=== PATIENT | female | born 1990 | race Caucasian/White ===

== ENCOUNTER 2017-03-13 21:50 | Emergency (ER) | payer OTHER ==
[2017-03-13] MEDS ORDERED: DEXAMETHASONE SOD PHOSPHATE 10 MG/1 ML VIAL IM ONE (22:19)
--- NOTE | 2017-03-13 22:19 | PDOC ---
History of Present Illness - General History Source: Patient Exam Limitations: No Limitations - History of Present Illness Initial Comments: 03/13/17 23:35 The patient is a 26 year old female with no significant past medical history who presents to the ED with s/p allergic reaction prior to arrival. Patient reports she ate maltese food and subsequently developed SOB and tightness in the throat. States she experienced similar symptoms 1 week ago, however at that time, she had [place] island[place] food. The patient denies fever, chills, cough, chest pain, and palpitations. The patient denies abdominal pain, nausea, vomiting, and diarrhea. Allergies: penicillins Social History: No alcohol, tobacco, or drug use reported. Past Surgical History: None reported PCP: Dr. Azalea Pugh <Janneth Paredes - Last Filed: 03/13/17 23:41> - General History Source: Patient <AndrezGianfranco wang - Last Filed: 03/14/17 00:16> - General Chief Complaint: Allergic Reaction Stated Complaint: Allergic Reaction Time Seen by Provider: 03/13/17 22:16 Past History <Janneth Paredes - Last Filed: 03/13/17 23:41> - Immunization History Immunization Up to Date: Yes - Psycho/Social/Smoking Cessation Hx Anxiety: No Suicidal Ideation: No Smoking Status: Yes Smoking History: Never smoked Have you smoked in the past 12 months: No Number of Cigarettes Smoked Daily: 10 Information on smoking cessation initiated: No Hx Alcohol Use: No Drug/Substance Use Hx: No <Gianfranco Lora - Last Filed: 03/14/17 00:16> - Past Medical History Allergies/Adverse Reactions: Allergies Allergy/AdvReac Type Severity Reaction Status Date / Time Penicillins Allergy Verified 03/13/17 22:13 Home Medications: Ambulatory Orders Loratadine/Pseudoephedrine Sul [Claritin-D 24 Hour Tablet] 1 tab PO DAILY #7 tab.sr.24h 10/30/14 Prednisone [Deltasone -] 40 mg PO DAILY #6 tablet 03/14/17 Review of Systems - Review of Systems Able to Perform ROS?: Yes Comments:: 03/13/17 23:36 CONSTITUTIONAL: Absent: fever, no chills, no fatigue EYES: Absent: visual changes ENT: +tightness in throat Absent: ear pain, no sore throat CARDIOVASCULAR: Absent: chest pain, no palpitations RESPIRATORY: +SOB Absent: cough GI: Absent: abdominal pain, no nausea, no vomiting, no constipation, no diarrhea GENITOURINARY: Absent: dysuria, no frequency, no hematuria MUSCULOSKELETAL: Absent: back pain, no arthralgia, no myalgia SKIN: Absent: rash NEURO: Absent: headache <Janneth Paredes - Last Filed: 03/13/17 23:41> *Physical Exam - Vital Signs Last Vital Signs Temp Pulse Resp BP Pulse Ox 98.8 F 72 16 130/61 100 03/13/17 22:14 03/13/17 22:14 03/13/17 22:14 03/13/17 22:14 03/13/17 22:14 - Physical Exam Comments: 03/13/17 23:36 GENERAL: Well-appearing, well-nourished. No apparent distress. HEENT: Normocephalic, atraumatic. PERRL, EOM intact. No tongue swelling. No mouth swelling. Oropharynx is clear. CARDIOVASCULAR: Normal S1, S2. Regular rate and rhythm. PULMONARY: No respiratory distress. Clear to auscultation bilaterally. No stridor. No drooling. No hot potato voice. No conversational dyspnea. No retractions. ABDOMEN: Soft, non-distended, non-tender. EXTREMITIES: Normal ROM in all four extremities. No gross deformities. SKIN: Warm, dry. No rash NEUROLOGICAL: No focal neurological deficits. <Janneth Paredes - Last Filed: 03/13/17 23:41> - Vital Signs Last Vital Signs Temp Pulse Resp BP Pulse Ox 98.8 F 72 16 130/61 100 03/13/17 22:14 03/13/17 22:14 03/13/17 22:14 03/13/17 22:14 03/13/17 22:14 <Gianfranco Lora - Last Filed: 03/14/17 00:16> Medical Decision Making - Medical Decision Making 03/14/17 00:12 Dr. Lora: The scribe's documentation has been prepared under my direction and personally reviewed by me in its entirery. I confirm that the note above accurately reflects all work, treatment, procedures, and medical decision making performed by me. <Gianfranco Lora - Last Filed: 03/14/17 00:16> *DC/Admit/Observation/Transfer - Attestations Scribe Attestion: 03/13/17 23:36 Documentation prepared by Janneth Paredes, acting as medical sales specialist for Gianfranco Lora MD/DO <Janneth Paredes - Last Filed: 03/13/17 23:41> - Discharge Dispostion Admit: No <Gianfranco Lora - Last Filed: 03/14/17 00:16> Diagnosis at time of Disposition: Allergic reaction Qualifiers: Encounter type: initial encounter Qualified Code(s): T78.40XA - Allergy, unspecified, initial encounter - Discharge Dispostion Disposition: HOME Condition at time of disposition: Improved - Prescriptions Prescriptions: Prednisone [Deltasone -] 40 mg PO DAILY #6 tablet - Referrals Referrals: Azalea Pugh MD [Primary Care Provider] - - Patient Instructions Printed Discharge Instructions: DI for General Allergic Reactions Additional Instructions: take medication as directed. get allergy test after you have completed the medication
[2017-03-13 22:24] VITALS: BP 130/61; PULSE 72; TEMP 98.8; BMI 23.8
[2017-03-13] MEDS ORDERED: DEXAMETHASONE SOD PHOSPHATE 10 MG/1 ML VIAL ONE (23:32)
== END 2017-03-14 00:32 | disposition home or self-care (01) ==
LOC: JER 21:50
PROC: 3E023GC Introduction of Other Therapeutic Substance into Muscle, Percutaneous Approach (ICD-10-PCS; principal; 2017-03-13)
DX: T78.40XA Allergy, unspecified, initial encounter (principal); X58.XXXA Exposure to other specified factors, initial encounter; Y93.9 Activity, unspecified
CPT/HCPCS: 96372; 99281-25; 99282-25

== ENCOUNTER 2017-04-16 17:06 | Emergency (ER) | payer OTHER ==
[2017-04-16 17:19] VITALS: BP 130/91; PULSE 90; TEMP 98.4; BMI 20.8
[2017-04-16] MEDS ORDERED: RANITIDINE HCL 150 MG TABLET (FP) PO ONE (17:19)
[2017-04-16] MEDS ORDERED: predniSONE 20 MG TABLET (UD) PO ONE (17:19)
--- NOTE | 2017-04-16 17:20 | PDOC ---
Rapid Medical Evaluation Time Seen by Provider: 04/16/17 17:15 Medical Evaluation: Allergies Allergy/AdvReac Type Severity Reaction Status Date / Time Penicillins Allergy Verified 03/13/17 22:13 I have performed a brief in-person evaluation of this patient. The patient presents with a chief complaint of: right side of face, lips and tongue swelling since yesterday. She does admit this is the second time this has happened, all after eating something from a pizza place. Pertinent physical exam findings: Slight swelling to right face, lateral to right eye. Slight right infraorbital swelling and swelling to right side of upper lip. Pt is talking abnormally although she can handle her own secretions and hold her tongue in her mouth. I have ordered the following: hcg, PO zantac, PO prednisone The patient will proceed to the ED for further evaluation.
--- NOTE | 2017-04-16 18:40 | PDOC ---
History of Present Illness - General Chief Complaint: Allergic Reaction Stated Complaint: ALLERGIC REACTION Time Seen by Provider: 04/16/17 17:15 Past History - Past Medical History Allergies/Adverse Reactions: Allergies Allergy/AdvReac Type Severity Reaction Status Date / Time Penicillins Allergy Verified 04/16/17 17:19 Home Medications: Ambulatory Orders Loratadine/Pseudoephedrine Sul [Claritin-D 24 Hour Tablet] 1 tab PO DAILY #7 tab.sr.24h 10/30/14 Prednisone [Deltasone -] 40 mg PO DAILY #6 tablet 03/14/17 Diphenhydramine HCl [Benadryl -] 25 mg PO Q6H PRN #60 capsule 04/16/17 Epinephrine [Epipen 2-Dameon] 0.3 mg IJ ASDIR #1 kit 04/16/17 Anemia: No Asthma: No Cancer: No Cardiac Disorders: No CVA: No COPD: No DVT: No Dementia: No Diabetes: No Dialysis: No GI Disorders: No Disorders: No HTN: No Hypercholesterolemia: No HIV: No Kidney Stones: No Liver Disease: No Psychiatric Problems: No Seizures: No Thyroid Disease: No Lung CA: No - Immunization History Immunization Up to Date: Yes - Psycho/Social/Smoking Cessation Hx Anxiety: No Suicidal Ideation: No Smoking Status: Yes Smoking History: Current every day smoker Have you smoked in the past 12 months: No Number of Cigarettes Smoked Daily: 8 Information on smoking cessation initiated: No Hx Alcohol Use: No Drug/Substance Use Hx: No *Physical Exam - Vital Signs Last Vital Signs Temp Pulse Resp BP Pulse Ox 98.4 F 90 18 130/91 100 04/16/17 17:15 04/16/17 17:15 04/16/17 17:15 04/16/17 17:15 04/16/17 17:15 ED Treatment Course - ADDITIONAL ORDERS Additional order review: Laboratory Results 04/16/17 17:25 Urine HCG, Qual Negative - Medications Given in the ED: ED Medications Discontinued Medications Generic Name Dose Route Start Last Admin Trade Name Freq PRN Reason Stop Dose Admin Prednisone 60 mg 04/16/17 17:19 04/16/17 17:34 Deltasone - PO 04/16/17 17:20 60 mg ONCE ONE Administration Ranitidine HCl 300 mg 04/16/17 17:19 04/16/17 17:34 Zantac - PO 04/16/17 17:20 300 mg ONCE ONE Administration *DC/Admit/Observation/Transfer Diagnosis at time of Disposition: Allergic reaction - Discharge Dispostion Disposition: HOME Condition at time of disposition: Stable Admit: No - Prescriptions Prescriptions: Diphenhydramine HCl [Benadryl -] 25 mg PO Q6H PRN #60 capsule PRN Reason: itching Epinephrine [Epipen 2-Dameon] 0.3 mg IJ ASDIR #1 kit - Referrals Referrals: Vika Villarreal MD [Staff Physician] - - Patient Instructions Printed Discharge Instructions: DI for General Allergic Reactions Additional Instructions: Please follow up with the property maintenance technician as discussed. Again, if you experience any new swelling to your throat, mouth, face, tongue, lips, or have any difficulty breathing, or rash spreading to your face, please use the epipen as directed and return to the ER.
== END 2017-04-16 18:57 | disposition home or self-care (01) ==
LOC: JERFT 17:06
DX: T78.1XXA Other adverse food reactions, not elsewhere classified, initial encounter (principal); T78.3XXA Angioneurotic edema, initial encounter
CPT/HCPCS: 84703; 99281-25

== ENCOUNTER 2017-09-12 15:54 | Emergency (ER) | payer OTHER ==
[2017-09-12 15:59] VITALS: BP 114/77; PULSE 111; TEMP 98; BMI 28.5
--- NOTE | 2017-09-12 16:00 | PDOC ---
Rapid Medical Evaluation Time Seen by Provider: 09/12/17 15:56 Medical Evaluation: Allergies Allergy/AdvReac Type Severity Reaction Status Date / Time Penicillins Allergy Verified 04/16/17 17:19 09/12/17 15:57 I have performed a brief in-person evaluation of this patient. The patient presents with a chief complaint of: throat feels tight after drinking peach ice tea 10 minutes ago Pertinent physical exam findings: speaking full sentences, o2 sat 98, no stridor , wheezing, no erythema or edema to posterior pharynx I have ordered the following: none The patient will proceed to the ED for further evaluation.
== END 2017-09-12 17:12 | disposition left against medical advice (07) ==
LOC: JERFT 15:54
DX: Z53.21 Procedure and treatment not carried out due to patient leaving prior to being seen by health care provider (principal)
CPT/HCPCS: 99281-25

== ENCOUNTER 2017-12-04 19:58 | Emergency (ER) | payer OTHER ==
--- NOTE | 2017-12-04 20:51 | PDOC ---
Rapid Medical Evaluation Time Seen by Provider: 12/04/17 20:47 Medical Evaluation: Allergies Allergy/AdvReac Type Severity Reaction Status Date / Time Penicillins Allergy Verified 09/12/17 15:59 I have performed a brief in-person evaluation of this patient. The patient presents with a chief complaint of: throat tightness, lightheaded Pertinent physical exam findings: none I have ordered the following: hcg The patient will proceed to the ED for further evaluation.
[2017-12-04 20:54] VITALS: BP 111/69; PULSE 81; TEMP 97.8; BMI 28.9
--- NOTE | 2017-12-04 22:39 | PDOC ---
History of Present Illness - General Chief Complaint: Pain Stated Complaint: FATIGUE Time Seen by Provider: 12/04/17 20:47 History Source: Patient Exam Limitations: No Limitations - History of Present Illness Travel History: No Initial Comments: 12/04/17 22:46 Mother here with concerns of gastric reflux for many weeks. States since then was here thought she would be evaluated also. States sometimes after a large meal she feels that she is choking. Has taken no medication for relief of same. Denies fever, denies any history of gastroenteritis or any bowel problems. Had a elective one month ago. Timing/Duration: reports: changing over time, intermittent Quality: reports: mild, moderate, cramping, fullness, stabbing Abdominal Pain Onset Location: reports: epigastric Pain Radiation: reports: no radiation Activities at Onset: reports: eating Past History - Travel Traveled outside of the country in the last 30 days: No Close contact w/someone who was outside of country & ill: No - Past Medical History Allergies/Adverse Reactions: Allergies Allergy/AdvReac Type Severity Reaction Status Date / Time Penicillins Allergy Verified 12/04/17 20:47 Home Medications: Ambulatory Orders Ranitidine HCl [Zantac] 150 mg PO BID #60 tablet 12/04/17 Anemia: No Asthma: No Cancer: No Cardiac Disorders: No CVA: No COPD: No DVT: No Dementia: No Diabetes: No Dialysis: No GI Disorders: No Disorders: No HTN: No Hypercholesterolemia: No Kidney Stones: No Liver Disease: No Psychiatric Problems: No Seizures: No Thyroid Disease: No Lung CA: No - Immunization History Immunization Up to Date: Yes - Suicide/Smoking/Psychosocial Hx Smoking Status: Yes Smoking History: Never smoked Have you smoked in the past 12 months: No Number of Cigarettes Smoked Daily: 8 Hx Alcohol Use: No Drug/Substance Use Hx: No Review of Systems - Review of Systems Able to Perform ROS?: Yes Is the patient limited French proficient: Yes Constitutional: Yes: Symptoms Reported, See HPI. No: Malaise HEENTM: Yes: See HPI. No: Symptoms Reported, Mouth Pain, Difficulty Swallowing Respiratory: Yes: See HPI. No: Symptoms reported, Cough Cardiac (ROS): No: Symptoms Reported ABD/GI: Yes: Symptoms Reported, See HPI, Other (gastric reflux intermittently, not consistent, and usually self resolves). No: Nausea, Vomiting : No: Symptoms Reported Neurological: Yes: See HPI. No: Symptoms reported, Headache All Other Systems: Reviewed and Negative *Physical Exam - Vital Signs Last Vital Signs Temp Pulse Resp BP Pulse Ox 97.8 F 81 16 111/69 100 12/04/17 20:48 12/04/17 20:48 12/04/17 20:48 12/04/17 20:48 12/04/17 20:48 - Physical Exam General Appearance: Yes: Nourished, Appropriately Dressed. No: Apparent Distress HEENT: positive: VIRAJ, Normal ENT Inspection, TMs Normal, Pharynx Normal. negative: Tonsillar Erythema, Nasal Congestion, Rhinorrhea Neck: positive: Supple. negative: Tender, Lymphadenopathy (R) Respiratory/Chest: positive: Lungs Clear, Normal Breath Sounds Gastrointestinal/Abdominal: positive: Soft. negative: Tender Extremity: positive: Normal Capillary Refill, Normal Inspection Integumentary: positive: Normal Color, Dry, Warm Neurologic: positive: country sales manager II-XII NML intact, Fully Oriented, Alert, Normal Mood/ Affect, Normal Response, Motor Strength 5/5 Progress Note - Progress Note Progress Note: Mild gastric reflux, we'll provide Zantac twice a day and have follow-up with PMD for further evaluation *DC/Admit/Observation/Transfer Diagnosis at time of Disposition: Gastric reflux - Discharge Dispostion Disposition: HOME Condition at time of disposition: Stable Admit: No - Prescriptions Prescriptions: Ranitidine HCl [Zantac] 150 mg PO BID #60 tablet - Referrals - Patient Instructions Printed Discharge Instructions: DI for Gastroesophageal Reflux Disease (GERD) Additional Instructions: Rest, drink lots of fluids: Teas, water, soups Doris darrel, carbonated beverages for the bubbles May try peppermint teas Avoid heavy , spicy or fatty foods until symptoms have resolved Avoid contact with others until fevers and symptoms resolved Lots of handwashing and good hygiene Continue [id number] medications for symptomatic relief Tylenol or Motrin for fever and pain Zantac 150 mg tablet every 12 hours for one week and reassess Followup with private physician in one to 2 days as needed Return to emergency department for worsened symptoms, fevers, dehydration - Post Discharge Activity
== END 2017-12-04 22:49 | disposition home or self-care (01) ==
LOC: JERFT 19:58
DX: K21.9 Gastro-esophageal reflux disease without esophagitis (principal)
CPT/HCPCS: 99281-25

== ENCOUNTER 2018-01-07 23:48 | Emergency (ER) | payer OTHER ==
[2018-01-08 00:16] VITALS: BP 128/81; PULSE 90; TEMP 98.6; BMI 26.5
[2018-01-08] MEDS ORDERED: MAG HYDROX/AL HYDROX/SIMETH 30 ML UNIT-DOSE CUP PO ONE (00:49)
--- NOTE | 2018-01-08 00:49 | PDOC ---
History of Present Illness - General Chief Complaint: Chest Pain Stated Complaint: CHEST PAIN Time Seen by Provider: 01/08/18 00:20 History Source: Patient - History of Present Illness Initial Comments: 01/08/18 01:33 27 year old female c/o epigastric pain with burning sensation to throat worse with laying for several days as per patient today is the worse day . Patient reports that she has been taking Zantac and has not been taking for the last 2 weeks. Patient also reports that she was seen 2 months ago for anxiety and daily patient reports that she had similar symptoms which has now resolved. Past medical History:Anxiety, GERD Past History - Past Medical History Allergies/Adverse Reactions: Allergies Allergy/AdvReac Type Severity Reaction Status Date / Time Penicillins Allergy Verified 12/04/17 20:47 Home Medications: Ambulatory Orders Ranitidine HCl [Zantac] 150 mg PO BID #60 tablet 12/04/17 Famotidine [Pepcid -] 20 mg PO BID #14 tablet 01/08/18 Anemia: No Asthma: No Cancer: No Cardiac Disorders: No CVA: No COPD: No DVT: No Dementia: No Diabetes: No Dialysis: No GI Disorders: No Disorders: No HTN: No Hypercholesterolemia: No Kidney Stones: No Liver Disease: No Psychiatric Problems: No Seizures: No Thyroid Disease: No Lung CA: No - Immunization History Immunization Up to Date: Yes - Suicide/Smoking/Psychosocial Hx Smoking Status: Yes Smoking History: Current every day smoker Have you smoked in the past 12 months: Yes Number of Cigarettes Smoked Daily: 10 Information on smoking cessation initiated: No Hx Alcohol Use: No Drug/Substance Use Hx: No Review of Systems - Review of Systems Able to Perform ROS?: Yes Is the patient limited Polish proficient: No Constitutional: No: Symptoms Reported, See HPI, Chills, Diaphoresis, Fever, Loss of Appetite, Malaise, Night Sweats, Weakness, Weight Stable, Unintentional Wgt. Loss, Unexplained wgt Loss, Other *Physical Exam - Vital Signs Last Vital Signs Temp Pulse Resp BP Pulse Ox 98.6 F 90 20 128/81 99 01/08/18 00:13 01/08/18 00:13 01/08/18 00:13 01/08/18 00:13 01/08/18 00:13 Heart Score/ECG Review - ECG Intrepretation Rhythm: Regular Rhythm Comment:: 01/08/18 01:36 NSR: 84bpm ED Treatment Course - Medications Given in the ED: ED Medications Discontinued Medications Generic Name Dose Route Start Last Admin Trade Name Mely PRN Reason Stop Dose Admin Al Hydroxide/Mg Hydroxide 30 ml 01/08/18 00:49 01/08/18 00:55 Mylanta Oral Suspension - PO 01/08/18 00:50 30 ml ONCE ONE Administration *DC/Admit/Observation/Transfer Diagnosis at time of Disposition: Gastric reflux - Discharge Dispostion Disposition: HOME - Prescriptions Prescriptions: Famotidine [Pepcid -] 20 mg PO BID #14 tablet - Referrals - Patient Instructions Printed Discharge Instructions: DI for Atypical Chest Pain Additional Instructions: follow up with your doctor as soon as possible. - Post Discharge Activity
[2018-01-08] MEDS ORDERED: MAG HYDROX/AL HYDROX/SIMETH 30 ML UNIT-DOSE CUP ONE (01:04)
--- NOTE | 2018-01-08 01:41 | PDOC ---
*Physical Exam - Vital Signs Last Vital Signs Temp Pulse Resp BP Pulse Ox 98.6 F 90 20 128/81 99 01/08/18 00:13 01/08/18 00:13 01/08/18 00:13 01/08/18 00:13 01/08/18 00:13 ED Treatment Course - Medications Given in the ED: ED Medications Discontinued Medications Generic Name Dose Route Start Last Admin Trade Name Porterq PRN Reason Stop Dose Admin Al Hydroxide/Mg Hydroxide 30 ml 01/08/18 00:49 01/08/18 00:55 Mylanta Oral Suspension - PO 01/08/18 00:50 30 ml ONCE ONE Administration Medical Decision Making - Medical Decision Making 01/08/18 01:41 agree with care from [facility] *DC/Admit/Observation/Transfer Diagnosis at time of Disposition: Gastric reflux - Discharge Dispostion Disposition: HOME - Prescriptions Prescriptions: Famotidine [Pepcid -] 20 mg PO BID #14 tablet - Referrals - Patient Instructions Printed Discharge Instructions: DI for Atypical Chest Pain Additional Instructions: follow up with your doctor as soon as possible. - Post Discharge Activity
--- NOTE | 2018-01-08 11:40 | EKG ---
Test Reason : Blood Pressure : / mmHG Vent. Rate : 084 BPM Atrial Rate : 084 BPM P-R Int : 154 ms QRS Dur : 082 ms QT Int : 388 ms P-R-T Axes : 010 002 -05 degrees QTc Int : 458 ms NORMAL SINUS RHYTHM INFERIOR INFARCT , AGE UNDETERMINED CANNOT RULE OUT ANTERIOR INFARCT , AGE UNDETERMINED ABNORMAL ECG NO PREVIOUS ECGS AVAILABLE Confirmed by ADITYA PINTO MD ([id number]) on 01/08/2018 11:40:38 AM Referred By: Confirmed By:ADITYA PINTO MD
== END 2018-01-08 02:31 | disposition home or self-care (01) ==
LOC: JER 23:48
DX: K21.9 Gastro-esophageal reflux disease without esophagitis (principal)
CPT/HCPCS: 93005; 93010; 99282-25

== ENCOUNTER 2018-01-19 23:41 | Emergency (ER) | payer OTHER ==
[2018-01-20] MEDS ORDERED: diphenhydrAMINE HCL 25 MG CAPSULE (FP) PO ONE ×2 (01:09→02:04)
[2018-01-20] MEDS ORDERED: BACITRACIN 0.9 GM PACKET ONE (01:09)
[2018-01-20 01:12] VITALS: BP 131/90; PULSE 76; TEMP 97.2; BMI 28.5
--- NOTE | 2018-01-20 01:20 | PDOC ---
History of Present Illness <Khadra Baker - Last Filed: 01/20/18 01:20> - General History Source: Patient Exam Limitations: No Limitations - History of Present Illness Initial Comments: 01/20/18 01:36 The patient is a 27 year old female with history of anxiety who presents to the ED complaining of a few days of redness to her left forearm. The patient was seen at [facility] ED 2x last week for separate complaints. First, she was seen for complaints of a panic attack. She returned the following day for concerns about her ten fingers being swollen. Today, she presents to the ED complaining of redness to the IV line bandage site. Reports that the affected area feels "itchy". She expresses that she is still concerned about her swollen fingers. No fever or chills. No difficulty breathing or swallowing. <Beryl Jack - Last Filed: 01/20/18 01:46> - General Chief Complaint: Edema Stated Complaint: SWOLLEN HANDS Time Seen by Provider: 01/20/18 00:57 Past History - Past Medical History Anemia: No Asthma: No Cancer: No Cardiac Disorders: No CVA: No COPD: No DVT: No Dementia: No Diabetes: No Dialysis: No GI Disorders: No Disorders: No HTN: No Hypercholesterolemia: No Kidney Stones: No Liver Disease: No Psychiatric Problems: No Seizures: No Thyroid Disease: No Lung CA: No - Immunization History Immunization Up to Date: Yes - Suicide/Smoking/Psychosocial Hx Smoking Status: Yes Smoking History: Never smoked Have you smoked in the past 12 months: No Number of Cigarettes Smoked Daily: 8 Information on smoking cessation initiated: No Hx Alcohol Use: No Drug/Substance Use Hx: No <Khadra Baker - Last Filed: 01/20/18 01:20> <Beryl Jack - Last Filed: 01/20/18 01:46> - Past Medical History Allergies/Adverse Reactions: Allergies Allergy/AdvReac Type Severity Reaction Status Date / Time Penicillins Allergy Verified 01/20/18 00:59 Home Medications: Ambulatory Orders Ranitidine HCl [Zantac] 150 mg PO BID #60 tablet 12/04/17 Famotidine [Pepcid -] 20 mg PO BID #14 tablet 01/08/18 Review of Systems - Review of Systems Able to Perform ROS?: Yes Comments:: 01/20/18 01:43 GENERAL/CONSTITUTIONAL: No fever or chills. No weakness. HEAD, EYES, EARS, NOSE AND THROAT: No change in vision. No ear pain or discharge. No sore throat. CARDIOVASCULAR: No chest pain or shortness of breath. RESPIRATORY: No cough, wheezing, or hemoptysis. GASTROINTESTINAL: No nausea, vomiting, diarrhea or constipation. GENITOURINARY: No dysuria, frequency, or change in urination. MUSCULOSKELETAL: No joint or muscle swelling or pain. No neck or back pain. SKIN: Swelling to b/l fingers. Redness to bandage site. NEUROLOGIC: No headache, vertigo, loss of consciousness, or change in strength/ sensation. ENDOCRINE: No increased thirst. No abnormal weight change. HEMATOLOGIC/LYMPHATIC: No anemia, easy bleeding, or history of blood clots. ALLERGIC/IMMUNOLOGIC: No hives or skin allergy. <Beryl Jack - Last Filed: 01/20/18 01:46> *Physical Exam - Vital Signs Last Vital Signs Temp Pulse Resp BP Pulse Ox 97.2 F L 76 18 131/90 100 01/20/18 00:57 01/20/18 00:57 01/20/18 00:57 01/20/18 00:57 01/20/18 00:57 <Khadra Baker - Last Filed: 01/20/18 01:20> - Vital Signs Last Vital Signs Temp Pulse Resp BP Pulse Ox 97.2 F L 76 18 131/90 100 01/20/18 00:57 01/20/18 00:57 01/20/18 00:57 01/20/18 00:57 01/20/18 00:57 - Physical Exam Comments: 01/20/18 01:44 GENERAL: Awake, alert, and fully oriented, in no acute distress HEAD: No signs of trauma EYES: PERRLA, EOMI, sclera anicteric, conjunctiva clear ENT: Auricles normal inspection, nares patent. Moist mucosa. Poor dentition. NECK: Normal ROM, supple, no JVD, or masses LUNGS: Breath sounds equal, clear to auscultation bilaterally. No wheezes, and no crackles HEART: Regular rate and rhythm, normal S1 and S2, no murmurs, rubs or gallops ABDOMEN: Soft, nontender, normoactive bowel sounds. No guarding, no rebound. No masses EXTREMITIES: No significant swelling noted to the digits of the bilateral upper extremities. Normal range of motion, no edema. No clubbing or cyanosis. No cords, erythema, or tenderness NEUROLOGICAL: Alert and oriented x 3. Moves all extremities. Face is symmetric. SKIN: Left antecubital area has an linear area of irritation surrounding the antecubital fossa that matches the borders of prior tape with a superficial laceration. Warm, Dry, normal turgor. <Beryl Jack - Last Filed: 01/20/18 01:46> *DC/Admit/Observation/Transfer <Khadra Baker - Last Filed: 01/20/18 01:20> - Attestations Scribe Attestion: 01/20/18 01:46 Documentation prepared by Beryl Jack, acting as caregivers non medical for Khadra Baker MD. <Beryl Jack - Last Filed: 01/20/18 01:46> Diagnosis at time of Disposition: Skin irritation - Discharge Dispostion Disposition: HOME Condition at time of disposition: Stable - Referrals Referrals: De Bello MD [Staff Physician] - - Patient Instructions Printed Discharge Instructions: DI for Rash Additional Instructions: please place bacitracin on your irritated skin on your left forearm Our clinic is located at [address] [place] [address] There is a clinic with our internal medicine group with Dr Bello
[2018-01-20] MEDS ORDERED: BACITRACIN 15 GM TUBE TOPICAL OINTMENT TP ONE (02:05)
== END 2018-01-20 01:36 | disposition home or self-care (01) ==
LOC: SUPCPDRO 23:41 → JER 23:41
DX: L30.9 Dermatitis, unspecified (principal)
CPT/HCPCS: 99281-25

== ENCOUNTER 2018-02-05 16:14 | Emergency (ER) | payer OTHER ==
--- NOTE | 2018-02-05 16:40 | PDOC ---
Rapid Medical Evaluation Chief Complaint: Pain, Acute Time Seen by Provider: 02/05/18 16:38 Medical Evaluation: Allergies Allergy/AdvReac Type Severity Reaction Status Date / Time Penicillins Allergy Verified 01/20/18 00:59 02/05/18 16:38 I have performed a brief in-person evaluation of this patient. The patient presents with a chief complaint of: R arm numbness w/ ? swelling to R fingers and ?sob today. Seen for same 01/20 and discharged from ED. H/o anxiety Pertinent physical exam findings:stable w/ unremarkable exam I have ordered the following:upreg/ekg The patient will proceed to the ED for further evaluation. 02/05/18 16:41 Discharge Disposition - Diagnosis Arm numbness - Referrals - Patient Instructions - Post Discharge Activity
[2018-02-05 16:42] VITALS: BP 115/68; PULSE 100; TEMP 97.9; BMI 29.8
--- NOTE | 2018-02-05 18:16 | PDOC ---
History of Present Illness - General Chief Complaint: Pain, Acute Stated Complaint: RIGHT ARM PAIN Time Seen by Provider: 02/05/18 16:38 History Source: Patient Exam Limitations: No Limitations - History of Present Illness Initial Comments: 02/05/18 18:16 Patient came for evaluation with multiple complaints. States has had right hand and arm pain on and off for the past 3 months. States mother suffers from some type of arthritis. And has been evaluated by Dr. Christensen for same. Also has questionable thyroid issues, has had a worsening hair loss, and general malaise for some time. Patient came today because her right arm was bothering her, denies any changes in exercise, heavy lifting, or trauma. Denies numbness or tingling to fingers, but is concerned about the swelling to the finger she noted before. Has taken no medication for relief of same. Denies fever, any recent illness. Had an within this past month 02/05/18 18:21 Timing/Duration: unsure, intermittent Severity: mild, moderate Associated Symptoms: reports: malaise. denies: fever/chills, headaches Past History - Travel Traveled outside of the country in the last 30 days: No Close contact w/someone who was outside of country & ill: No - Past Medical History Allergies/Adverse Reactions: Allergies Allergy/AdvReac Type Severity Reaction Status Date / Time Penicillins Allergy Verified 02/05/18 16:45 Home Medications: Ambulatory Orders NK [No Known Home Medication] 02/05/18 Anemia: No Asthma: No Cancer: No Cardiac Disorders: No CVA: No COPD: No DVT: No Dementia: No Diabetes: No Dialysis: No GI Disorders: No Disorders: No HTN: No Hypercholesterolemia: No Kidney Stones: No Liver Disease: No Psychiatric Problems: No Seizures: No Thyroid Disease: No Lung CA: No - Immunization History Immunization Up to Date: Yes - Suicide/Smoking/Psychosocial Hx Smoking Status: Yes Smoking History: Never smoked Have you smoked in the past 12 months: No Number of Cigarettes Smoked Daily: 20 Information on smoking cessation initiated: No Hx Alcohol Use: No Drug/Substance Use Hx: No Substance Use Type: None Review of Systems - Review of Systems Able to Perform ROS?: Yes Is the patient limited [place] proficient: Yes Constitutional: Yes: Symptoms Reported, See HPI, Malaise. No: Fever, Loss of Appetite HEENTM: Yes: See HPI. No: Symptoms Reported, Nose Congestion Respiratory: Yes: See HPI. No: Symptoms reported, Cough Musculoskeletal: Yes: Symptoms Reported, See HPI, Joint Pain (bilateral hands, worse on the right than the left) Integumentary: Yes: Rash, Other (significant alopecia to the anterior aspect of the scalp) All Other Systems: Reviewed and Negative *Physical Exam - Vital Signs Last Vital Signs Temp Pulse Resp BP Pulse Ox 97.9 F 100 H 16 115/68 98 02/05/18 16:39 02/05/18 16:39 02/05/18 16:39 02/05/18 16:39 02/05/18 16:39 - Physical Exam General Appearance: Yes: Nourished, Appropriately Dressed. No: Apparent Distress HEENT: positive: VIRAJ, Normal ENT Inspection, TMs Normal, Pharynx Normal, Other (multiple decayed or missing teeth to upper mouth, no abscess, or swelling to face. Alopecia extending to midpoint crown of head bilateral temples.) Gastrointestinal/Abdominal: positive: Soft Musculoskeletal: negative: Vertebral Tenderness Extremity: positive: Normal Capillary Refill, Normal Range of Motion (able to supinate and pronate at wrist and elbow without tenderness reproduced, no shoulder pain, no neck pain or muscular pain to upper back). negative: Normal Inspection (patient with joint swelling to bilateral hands and every finger, worse on the right on the thumb the left, however strength is good and equal, capillary refill is brisk. Radial and ulnar pulses are palpable and strong) Integumentary: positive: Dry, Warm, Pale Neurologic: positive: geospatial program management officer II-XII NML intact, Fully Oriented, Alert, Normal Mood/ Affect, Normal Response, Motor Strength 5/5 ED Treatment Course - ADDITIONAL ORDERS Additional order review: Laboratory Results 02/05/18 17:00 Urine HCG, Qual Negative Medical Decision Making - Medical Decision Making 02/05/18 18:20 UCG is negative, patient with multiple complaints that are all chronic in nature including hand swelling and some joint deformity. With appointment tomorrow the Dr. Cam florentino will probably perform multiple laboratory tests and opted out of any blood testing here. Patient has no evidence of any cardiac disease therefore we'll not perform EKG and hold other testing for PMD. Understands may take Tylenol or Motrin for pain relief 02/05/18 18:24 *DC/Admit/Observation/Transfer Diagnosis at time of Disposition: Arm pain, right - Discharge Dispostion Disposition: HOME Condition at time of disposition: Stable Admit: No - Referrals Referrals: Marco Jimenez MD [Primary Care Provider] - - Patient Instructions Printed Discharge Instructions: DI for Arm Pain Additional Instructions: Be sure to keep appointment with Dr. Christensen tomorrow as he may decide to do some testing for further evaluation of chronic arm pain and other seemingly metabolic problems - Post Discharge Activity
[2018-02-05] MEDS ORDERED: IBUPROFEN 400 MG TABLET (FP) PO ONE ×2 (18:25→18:29)
== END 2018-02-05 18:30 | disposition home or self-care (01) ==
LOC: JERFT 16:14
DX: M79.601 Pain in right arm (principal)
CPT/HCPCS: 84703; 99281-25

== ENCOUNTER 2018-03-21 13:29 | Inpatient (IN) | payer OTHER ==
[2018-03-21] MEDS ORDERED: SODIUM CHLORIDE 0.9% 1000 ML INFUS.BAG IV ONE (14:02)
[2018-03-21] MEDS ORDERED: ONDANSETRON 4 MG/2 ML VIAL IVPUSH ONE ×2 (14:02→16:15)
[2018-03-21] MEDS ORDERED: METOCLOPRAMIDE HCL INJECTION 10 MG/2 ML VIAL IVPB ONE (14:17)
--- NOTE | 2018-03-21 14:19 | PDOC ---
History of Present Illness - General History Source: Patient Exam Limitations: No Limitations - History of Present Illness Initial Comments: 03/21/18 14:44 The patient is a 27 year old female, with a significant PMH of GERD, who presents to the emergency department with right upper quadrant abdominal pain and nausea with emesis for approx. 4 hours. The patient states the right upper quadrant abdominal pain began at 10 am this morning followed by 5 episodes of non bloody, non bilious vomiting. The patient states the right upper quadrant abdominal pain is exacerbated with movement and alleviated with rest. The patient states she took gas-x for the abdominal pain with minimal relief. The patient reports her last bowel movement was this morning which was normal ( denies diarrhea, hematochezia, melena). The patient denies chest pain, shortness of breath, headache and dizziness. Denies fever, chills, diarrhea and constipation. Denies dysuria, frequency, urgency and hematuria. Allergies: Penicillins Social history: Drinks 3x a week. Tobacco use, 8 cigarettes per day. No recreational drug use. <Devin Carrillo - Last Filed: 03/21/18 17:26> <Royal Mc - Last Filed: 03/21/18 19:33> - General Chief Complaint: Nausea/Vomiting Stated Complaint: ABD PAIN, VOMITING Time Seen by Provider: 03/21/18 14:02 Past History <Devin Carrillo - Last Filed: 03/21/18 17:26> - Past Medical History Anemia: No Asthma: No Cancer: No Cardiac Disorders: No CVA: No COPD: No DVT: No Dementia: No Diabetes: No Dialysis: No GI Disorders: No Disorders: No HTN: No Hypercholesterolemia: No Kidney Stones: No Liver Disease: No Psychiatric Problems: No Seizures: No Thyroid Disease: No Lung CA: No - Immunization History Immunization Up to Date: Yes - Suicide/Smoking/Psychosocial Hx Smoking Status: Yes Smoking History: Never smoked Have you smoked in the past 12 months: No Number of Cigarettes Smoked Daily: 20 Information on smoking cessation initiated: No Hx Alcohol Use: No Drug/Substance Use Hx: No Substance Use Type: None <Royal Mc - Last Filed: 03/21/18 19:33> - Past Medical History Allergies/Adverse Reactions: Allergies Allergy/AdvReac Type Severity Reaction Status Date / Time Penicillins Allergy Verified 03/21/18 13:54 Home Medications: Ambulatory Orders NK [No Known Home Medication] 02/05/18 Review of Systems - Review of Systems Comments:: 03/21/18 14:44 A complete review of 10 out of 10 review of systems is taken and is negative apart from what is previously mentioned below and in the HPI. <Devin Carrillo - Last Filed: 03/21/18 17:26> *Physical Exam - Vital Signs Last Vital Signs Temp Pulse Resp BP Pulse Ox 97.6 F 76 16 114/94 100 03/21/18 13:51 03/21/18 13:51 03/21/18 13:51 03/21/18 13:51 03/21/18 13:51 - Physical Exam Comments: 03/21/18 14:44 Vitals: Triage vital signs reviewed General Appearance: No acute distress, well nourished, well developed Head: Atraumatic Neck: Supple; No nuchal rigidity Chest Wall: Nontender Cardiac: Regular rate and rhythm, no murmurs, no rubs, no gallops Lungs: Clear to auscultation bilateral, good air movement bilaterally Abdomen: (+) Right upper quadrant tenderness. No guarding or rebound. Soft, nondistended, normal bowel sounds. Rectal: Exam deferred Extremities: Full range of motion to all extremities, no cyanosis, clubbing, or edema Skin: Warm and dry, no rashes or lesions, no rash, no petechiae Psych: Normal mood, normal affect <Devin Carrillo - Last Filed: 03/21/18 17:26> - Vital Signs Last Vital Signs Temp Pulse Resp BP Pulse Ox 97.6 F 76 16 114/94 100 03/21/18 13:51 03/21/18 13:51 03/21/18 13:51 03/21/18 13:51 03/21/18 13:51 <Royal Mc - Last Filed: 03/21/18 19:33> ED Treatment Course - LABORATORY CBC & Chemistry Diagram: 03/21/18 14:25 03/21/18 14:25 - RADIOLOGY Radiograph Interpretation: 03/21/18 17:26 EXAM#: TYPE/EXAM: RESULT: [id number] US/ABDOMEN US -LIMITED INDICATION: Right upper quadrant abdominal pain. TECHNIQUE: A real-time grayscale and color Doppler sonogram of the right upper quadrant of the abdomen was performed by the technologist. Images are submitted for review. COMPARISON: None available. FINDINGS: The liver measures 12.2 cm in length with echogenic hepatic parenchyma compatible with steatosis. Please note that echogenic hepatic parenchyma decreases sonographic sensitivity in detecting hepatic masses, although no discrete hepatic mass lesion identified. The portal vein is patent with hepatopedal flow. There is no evidence of intrahepatic or extrahepatic biliary ductal dilatation. A proximal extrahepatic bile duct measures 3 mm in diameter. The majority the common bile duct is obscured by bowel gas. The gallbladder is not pathologically distended. No evidence of cholelithiasis, gallbladder wall thickening or pericholecystic fluid. The visualized portions of pancreas are grossly unremarkable. The upper abdominal aorta and intrahepatic IVC are unremarkable, where imaged. The right kidney is normal size, measuring 9.8 cm in length with normal cortical echotexture and no hydronephrosis. IMPRESSION: 1. No evidence of cholelithiasis, acute cholecystitis or biliary ductal dilatation. 2. Hepatic steatosis. Reported By: Treva Frazier DO <Devin Carrillo - Last Filed: 03/21/18 17:26> - LABORATORY CBC & Chemistry Diagram: 03/21/18 14:25 03/21/18 14:25 <Royal Mc - Last Filed: 03/21/18 19:33> Medical Decision Making - Medical Decision Making 03/21/18 14:48 The patient is a 27 year old female, with a significant PMH of GERD, who presents to the emergency department with right upper quadrant abdominal pain and 5 episodes of nausea with vomiting (non bloody, non bilious) since 10 am. Plan: Labs, Meds, Abdomen Ultrasound. <Devin Carrillo - Last Filed: 03/21/18 17:26> - Medical Decision Making Laboratory analysis notable for markedly elevated lipase. History examination consistent pancreatitis. Given no evidence of gallstones on ultrasound this most likely represents alcoholic pancreatitis Given persistent vomiting and pain we'll admit to medicine for further management. <Royal Mc - Last Filed: 03/21/18 19:33> *DC/Admit/Observation/Transfer - Attestations Scribe Attestion: 03/21/18 14:48 Documentation prepared by Devin Carrillo, acting as emergency medical service manager for Royal Mc MD. <Devin Carrillo - Last Filed: 03/21/18 17:26> - Discharge Dispostion Decision to Admit order: Yes <Royal Mc - Last Filed: 03/21/18 19:33> Diagnosis at time of Disposition: Pancreatitis Qualifiers: Chronicity: acute Pancreatitis type: other Acute pancreatitis complication: unspecified Qualified Code(s): K85.80 - Other acute pancreatitis without necrosis or infection
[2018-03-21] MEDS ORDERED: ONDANSETRON 4 MG/2 ML VIAL ONE (14:35)
[2018-03-21] MEDS ORDERED: METOCLOPRAMIDE HCL INJECTION 10 MG/2 ML VIAL ONE (14:35)
[2018-03-21 14:55] LABS: BASO % 0.3 % (0-2.0); EOS % 0.1 % (0-4.5); HEMOGLOBIN 15.1 GM/dL (10.7-15.3); LYMPH % 4.8 % (8-40); MCH 31.4 pg (25.7-33.7); MCHC 34.4 g/dl (32.0-36.0); MEAN CELL VOLUME 91.3 fl (80-96); MEAN PLT VOLUME 8.4 fl (7.5-11.1); MONO % 3.9 % (3.8-10.2); NEUT % 90.9 % (42.8-82.8); PLATELET COUNT 201 K/MM3 (134-434); RBC 4.82 M/mm3 (3.60-5.2); RDW 16.9 % (11.6-15.6); WHITE BLOOD COUNT 13.5 K/mm3 (4.0-10.0)
[2018-03-21 14:58] LABS: URINE APPEARANCE SLCLOUDY; URINE BILIRUBIN NEGATIVE (<2.0 mg/dL); URINE COLOR YELLOW; URINE GLUCOSE (UA) NEGATIVE (NEGATIVE); URINE KETONE 2+ (NEGATIVE); URINE LEUK ESTERASE NEGATIVE (NEGATIVE); URINE NITRITE NEGATIVE (NEGATIVE)
[2018-03-21 15:02] LABS: HCG,QUALITATIVE URINE NEGATIVE
[2018-03-21 15:05] LABS: URINE PROTEIN 1+ (NEGATIVE)
[2018-03-21 15:17] LABS: EPI CELLS MODERATE /HPF (FEW); URINE MUCUS MANY
[2018-03-21 15:35] LABS: ALK PHOS 88 U/L (45-117); ANION GAP 8 (8-16); BILIRUBIN,TOTAL 0.9 mg/dL (0.2-1.0); BLOOD UREA NITROGEN 12 mg/dL (7-18); CALCIUM 8.9 mg/dL (8.5-10.1); CHLORIDE 102 mmol/L (98-107); CO2 27 mmol/L (21-32); CREATININE 0.7 mg/dL (0.55-1.02); GLUCOSE,RANDOM 94 mg/dL (74-106); POTASSIUM 3.9 mmol/L (3.5-5.1); SGOT/AST 17 U/L (15-37); SGPT/ALT 21 U/L (12-78); SODIUM 137 mmol/L (136-145); TOT PROT 7.5 g/dl (6.4-8.2)
[2018-03-21] MEDS ORDERED: morphine CARPU-JECT 2 MG/1 ML DISP.SYRIN IVPUSH PRN (16:56)
--- NOTE | 2018-03-21 16:56 | HP ---
<Taco Jimenez - Last Filed: 03/21/18 17:43> CHIEF COMPLAINT:Abdominal pain PCP: [facility] HISTORY OF PRESENT ILLNESS: 27F with PMH of anxiety/depression, GERD, and diet controlled pre-hypertension, known to me from resident [facility], presents to the hospital with a 1 day history of nausea vomting and abdominal pain. Patient states she started vomitng this morning after trying to eat a burger. The vomitus consists of whatever the patient ate and one of the times it was bilious. She denies blood in her vomitus. She also complains of abdominal distention and trouble defecating. She denies fevers, chills, chest pain, or shortness of breath. She denies diarrhea or blood in her stool. Patient has a history of being a heavy drinker but she says she has slowed down significantly and last time she drank alcohol was about 3 weeks ago per patient but she was not sure. She states she drank 6 cups of alcohol but could not quantify it that much more for me. She denies nay urinary symptoms. ER course was notable for: (1)NPO (2)IVF Pain control antiemetics (3)US Recent Travel:Denies PAST MEDICAL HISTORY:Anxiety/depression GERD PAST SURGICAL HISTORY: Social History: Smoking: smokes about 1/2 PPD Alcohol: Drinks about 3 times per week Drugs: Denies Family History: Allergies Penicillins Allergy (Verified 03/21/18 13:54) HOME MEDICATIONS: Home Medications Medication Instructions Recorded NK [No Known Home Medication] 02/05/18 REVIEW OF SYSTEMS CONSTITUTIONAL: Absent: fever, chills, diaphoresis, generalized weakness, malaise, loss of appetite, weight change HEENT: Absent: rhinorrhea, nasal congestion, throat pain, throat swelling, difficulty swallowing, mouth swelling, ear pain, eye pain, visual changes CARDIOVASCULAR: Absent: chest pain, syncope, palpitations, irregular heart rate, lightheadedness , peripheral edema RESPIRATORY: Absent: cough, shortness of breath, dyspnea with exertion, orthopnea, wheezing, stridor, hemoptysis GASTROINTESTINAL: Absent: diarrhea, constipation, melena, hematochezia Present: abdominal pain, abdominal distension, nausea, vomiting, constipation GENITOURINARY: Absent: dysuria, frequency, urgency, hesitancy, hematuria, flank pain, genital pain MUSCULOSKELETAL: Absent: myalgia, arthralgia, joint swelling, back pain, neck pain Present: finger joint pain SKIN: Absent: rash, itching, pallor HEMATOLOGIC/IMMUNOLOGIC: Absent: easy bleeding, easy bruising, lymphadenopathy, frequent infections ENDOCRINE: Absent: unexplained weight gain, unexplained weight loss, heat intolerance, cold intolerance NEUROLOGIC: Absent: headache, focal weakness or paresthesias, dizziness, unsteady gait, seizure, mental status changes, bladder or bowel incontinence PSYCHIATRIC: Absent: anxiety, depression, suicidal or homicidal ideation, hallucinations. PHYSICAL EXAMINATION Vital Signs - 24 hr 03/21/18 13:51 Temperature 97.6 F Pulse Rate 76 Respiratory 16 Rate Blood Pressure 114/94 O2 Sat by Pulse 100 Oximetry (%) GENERAL: Awake, alert, and fully oriented, in no acute distress. HEAD: Normal with no signs of trauma. EYES: Pupils equal, round and reactive to light, extraocular movements intact EARS, NOSE, THROAT: Moist mucous membranes. NECK:supple LUNGS: Breath sounds equal, clear to auscultation bilaterally. HEART: Regular rate and rhythm, normal S1 and S2 without murmur ABDOMEN: Soft, Tender to deep palpation in epigastrium MUSCULOSKELETAL: No CVA tenderness. NEUROLOGICAL: Cranial nerves II-XII intact. PSYCHIATRIC: slightly withdrawn Laboratory Results - last 24 hr 03/21/18 03/21/18 03/21/18 14:25 14:25 14:25 WBC 13.5 H RBC 4.82 Hgb 15.1 Hct 44.0 MCV 91.3 MCH 31.4 MCHC 34.4 RDW 16.9 H Plt Count 201 MPV 8.4 Neutrophils % 90.9 H Lymphocytes % 4.8 L Monocytes % 3.9 Eosinophils % 0.1 Basophils % 0.3 Sodium 137 Potassium 3.9 Chloride 102 Carbon Dioxide 27 Anion Gap 8 BUN 12 Creatinine 0.7 Creat Clearance w eGFR > 60 Random Glucose 94 Calcium 8.9 Total Bilirubin 0.9 AST 17 ALT 21 Alkaline Phosphatase 88 Total Protein 7.5 Albumin 4.0 Lipase Urine Color Yellow Urine Appearance Slcloudy Urine pH 7.0 Ur Specific [place] 1.026 Urine Protein 1+ H Urine Glucose (UA) Negative Urine Ketones 2+ H Urine Blood Negative Urine Nitrite Negative Urine Bilirubin Negative Urine Urobilinogen 2.0 H Ur Leukocyte Esterase Negative Urine WBC (Auto) 2 Urine RBC (Auto) 8 Ur Epithelial Cells Moderate Urine Mucus Many Urine HCG, Qual Negative 03/21/18 14:25 WBC RBC Hgb Hct MCV MCH MCHC RDW Plt Count MPV Neutrophils % Lymphocytes % Monocytes % Eosinophils % Basophils % Sodium Potassium Chloride Carbon Dioxide Anion Gap BUN Creatinine Creat Clearance w eGFR Random Glucose Calcium Total Bilirubin AST ALT Alkaline Phosphatase Total Protein Albumin Lipase 1707 H Urine Color Urine Appearance Urine pH Ur Specific [place] Urine Protein Urine Glucose (UA) Urine Ketones Urine Blood Urine Nitrite Urine Bilirubin Urine Urobilinogen Ur Leukocyte Esterase Urine WBC (Auto) Urine RBC (Auto) Ur Epithelial Cells Urine Mucus Urine HCG, Qual ASSESSMENT/PLAN: 27F with PMH GERD, pre-hypertension, anxiety and depression, presents to the hospital with abdominal pain found to have acute pancreatitis. Acute Pancreatitis: Likely due to alcohol abuse. not on meds at this time Admit to Med-Surg NPO IVF Pain control Anti emetics Counselled extensively on abstaining from alcohol and the risks involved she she does not such as . counselled on joining AA and seeking therapy for alcoholism GI consult f/u US ABD-Fatty Liver pre-hypertension: Trend BP f/u as outpatient Anxiety/Depression: Patient was started on trazadone on last outpatient visit and states she has not has any anxiety and does not feel depressed anymore and does not want to take the trazadone anymore so she stopped it. GERD: Stopped omeprazole because she states she felt like it gave her abdominal pain Still having symptoms Can cause pancreatitis so will not restart it Fatty Liver FEN: LR @ 200ml/hr no electrolyte issues NPO PPx: HSQ for DVT No GI PPx No PT consult needed Case discussed with attending Dr. Garrido Visit type - Emergency Visit Emergency Visit: Yes ED Registration Date: 03/21/18 Care time: The patient presented to the Emergency Department on the above date and was hospitalized for further evaluation of their emergent condition. - New Patient This patient is new to me today: Yes Date on this admission: 03/21/18 - Critical Care Critical Care patient: No Hospitalist Screening - Colonoscopy Questionnaire Colonoscopy Questionnaire: Colonoscopy Questionnaire - Patient: 50 - 75 years old and never had a screening colonoscopy: No History of colon or rectal polyps, or CA: No History of IBD, Crohn's disease or UC: No History of abdominal radiation therapy as a child: No - Relative: 1 with colon or rectal CA, or polyps at age 60 or younger: No Colon or rectal CA diagnosed at age 45 or younger: No Multiple relatives with colon or rectal CA: No - Outcome: Screening Result: Negative Screen <Duane Garrido - Last Filed: 03/21/18 19:54> Agree with the resident's note follow lipase level, npo, follow EToh level, Gi for consult. follw for withdrawel. stated that her last drink was a week ago. Vital Signs Temperature 98.5 F 03/21/18 18:56 Pulse Rate 72 03/21/18 18:56 Respiratory Rate 18 03/21/18 18:56 Blood Pressure 113/69 03/21/18 18:56 O2 Sat by Pulse Oximetry (%) 97 03/21/18 19:02 CBCD WBC 13.5 K/mm3 (4.0-10.0) H 03/21/18 14:25 RBC 4.82 M/mm3 (3.60-5.2) 03/21/18 14:25 Hgb 15.1 GM/dL (10.7-15.3) 03/21/18 14:25 Hct 44.0 % (32.4-45.2) 03/21/18 14:25 MCV 91.3 fl (80-96) 03/21/18 14:25 MCHC 34.4 g/dl (32.0-36.0) 03/21/18 14:25 RDW 16.9 % (11.6-15.6) H 03/21/18 14:25 Plt Count 201 K/MM3 (134-434) 03/21/18 14:25 MPV 8.4 fl (7.5-11.1) 03/21/18 14:25 CMP Sodium 137 mmol/L (136-145) 03/21/18 14:25 Potassium 3.9 mmol/L (3.5-5.1) 03/21/18 14:25 Chloride 102 mmol/L (98-107) 03/21/18 14:25 Carbon Dioxide 27 mmol/L (21-32) 03/21/18 14:25 Anion Gap 8 (8-16) 03/21/18 14:25 BUN 12 mg/dL (7-18) 03/21/18 14:25 Creatinine 0.7 mg/dL (0.55-1.02) 03/21/18 14:25 Creat Clearance w eGFR > 60 (>60) 03/21/18 14:25 Random Glucose 94 mg/dL (74-106) 03/21/18 14:25 Calcium 8.9 mg/dL (8.5-10.1) 03/21/18 14:25 Total Bilirubin 0.9 mg/dL (0.2-1.0) 03/21/18 14:25 AST 17 U/L (15-37) 03/21/18 14:25 ALT 21 U/L (12-78) 03/21/18 14:25 Alkaline Phosphatase 88 U/L (45-117) 03/21/18 14:25 Total Protein 7.5 g/dl (6.4-8.2) 03/21/18 14:25 Albumin 4.0 g/dl (3.4-5.0) 03/21/18 14:25 Current Medications Generic Name Dose Route Start Last Admin Trade Name Freq PRN Reason Stop Dose Admin Heparin Sodium (Porcine) 5,000 unit 03/21/18 22:00 Heparin - SQ TID WANDY Lactated Ringer's 1,000 mls @ 200 mls/hr 03/21/18 17:00 03/21/18 17:23 Lactated Ringers Solution IV 200 mls/hr ASDIR WANDY Administration Metoclopramide HCl 10 mg 03/21/18 20:00 Reglan Injection - IVPUSH Q6H PRN NAUSEA AND/OR VOMITING Morphine Sulfate 2 mg 03/21/18 17:29 Morphine Sulfate IVPUSH Q4H PRN PAIN LEVEL 6-10 Ondansetron HCl 4 mg 03/21/18 20:00 Zofran Injection IVPUSH Q6H PRN NAUSEA Home Medications Medication Instructions Recorded NK [No Known Home Medication] 02/05/18 Hospitalist Screening - Colonoscopy Questionnaire Colonoscopy Questionnaire: Colonoscopy Questionnaire
[2018-03-21] MEDS ORDERED: MORPHINE SULFATE 10 MG/1 ML *VIAL ONE (17:16)
[2018-03-21] MEDS: LACTATED RINGERS SOLUTION 1,000 ML IV SCH (17:23)
[2018-03-21] MEDS ORDERED: morphine SULFATE 4 MG/ML VIAL IVPUSH PRN (17:29)
[2018-03-21 18:21] LABS: CHOLESTEROL 209 mg/dL (50-200); HDL CHOLESTEROL 56 mg/dL (40-60); TRIGLYCERIDES 77 mg/dL (35-160)
[2018-03-21 19:00] VITALS: BMI 29.4
[2018-03-21] MEDS ORDERED: ONDANSETRON 4 MG/2 ML VIAL IVPUSH PRN (20:00)
[2018-03-21] MEDS ORDERED: METOCLOPRAMIDE HCL INJECTION 10 MG/2 ML VIAL IVPUSH PRN (20:00)
[2018-03-21] MEDS: HEPARIN NA (PORCINE) 5,000 UNITS/ML 1ML VIAL SQ SCH (21:28)
[2018-03-22] MEDS: HEPARIN NA (PORCINE) 5,000 UNITS/ML 1ML VIAL SQ SCH ×3 (06:49→22:12)
[2018-03-22 07:58] LABS: HEMATOCRIT 42.1 % (32.4-45.2); HEMOGLOBIN 14.5 GM/dL (10.7-15.3); MCH 31.9 pg (25.7-33.7); MCHC 34.5 g/dl (32.0-36.0); MEAN CELL VOLUME 92.3 fl (80-96); MEAN PLT VOLUME 8.8 fl (7.5-11.1); PLATELET COUNT 189 K/MM3 (134-434); RBC 4.57 M/mm3 (3.60-5.2); RDW 16.7 % (11.6-15.6); WHITE BLOOD COUNT 9.3 K/mm3 (4.0-10.0)
[2018-03-22 08:31] LABS: CHLORIDE 104 mmol/L (98-107); POTASSIUM 4.1 mmol/L (3.5-5.1); SODIUM 138 mmol/L (136-145)
[2018-03-22 08:47] LABS: ALBUMIN 3.3 g/dl (3.4-5.0); ALK PHOS 73 U/L (45-117); AMYLASE 150 U/L (25-115); ANION GAP 9 (8-16); BILIRUBIN,TOTAL 1.1 mg/dL (0.2-1.0); BLOOD UREA NITROGEN 6 mg/dL (7-18); CALCIUM 8.7 mg/dL (8.5-10.1); CO2 25 mmol/L (21-32); CREATININE 0.6 mg/dL (0.55-1.02); GLUCOSE,RANDOM 85 mg/dL (74-106); MAGNESIUM 1.9 mg/dL (1.8-2.4); PHOSPHOROUS 2.6 mg/dL (2.5-4.9); SGOT/AST 13 U/L (15-37); SGPT/ALT 15 U/L (12-78); TOT PROT 6.3 g/dl (6.4-8.2)
[2018-03-22 08:59] LABS: LIPASE 1166 U/L (73-393)
[2018-03-22] MEDS: LACTATED RINGERS SOLUTION 1,000 ML IV SCH ×2 (09:47→22:00)
--- NOTE | 2018-03-22 14:04 | PN ---
Progress Note (short form) - Note Progress Note: Anesthesia COMMERCIAL ARTIST LETTERING round POD#3, S/P Left colectomy, colostomy, Left oopherectomy and left ureter stent placement. The post op pain has improved. Mostly painful at ostomy site when ambulating. Score4/10. VSS. A/P:Will D/C COMMERCIAL ARTIST LETTERING today. Continue with Ofirmev and additional iv Morphine prn per primary team.
--- NOTE | 2018-03-22 14:34 | PN ---
Progress Note (short form) - Note Progress Note: Patient is feeling better, no abdominal pain at this time. Vital Signs Temperature 98.4 F 03/22/18 09:45 Pulse Rate 72 03/22/18 09:45 Respiratory Rate 18 03/22/18 09:45 Blood Pressure 129/61 03/22/18 09:45 O2 Sat by Pulse Oximetry (%) 97 03/21/18 21:00 GENERAL: Awake, alert, and fully oriented, in no acute distress. HEAD/Neck : Normal with no signs of trauma. supple EYES: Pupils equal, round and reactive to light, extraocular movements intact EARS, NOSE, THROAT: Moist mucous membranes. LUNGS: Breath sounds equal, clear to auscultation bilaterally. HEART: Regular rate and rhythm, normal S1 and S2 without murmur ABDOMEN: Soft, nontender to deep palpation in epigastric area MUSCULOSKELETAL: No CVA tenderness. NEUROLOGICAL: Cranial nerves II-XII intact. PSYCHIATRIC: slightly withdrawn CBCD WBC 9.3 K/mm3 (4.0-10.0) D 03/22/18 07:15 RBC 4.57 M/mm3 (3.60-5.2) 03/22/18 07:15 Hgb 14.5 GM/dL (10.7-15.3) 03/22/18 07:15 Hct 42.1 % (32.4-45.2) 03/22/18 07:15 MCV 92.3 fl (80-96) 03/22/18 07:15 MCHC 34.5 g/dl (32.0-36.0) 03/22/18 07:15 RDW 16.7 % (11.6-15.6) H 03/22/18 07:15 Plt Count 189 K/MM3 (134-434) 03/22/18 07:15 MPV 8.8 fl (7.5-11.1) 03/22/18 07:15 CMP Sodium 138 mmol/L (136-145) 03/22/18 07:05 Potassium 4.1 mmol/L (3.5-5.1) 03/22/18 07:05 Chloride 104 mmol/L (98-107) 03/22/18 07:05 Carbon Dioxide 25 mmol/L (21-32) 03/22/18 07:05 Anion Gap 9 (8-16) 03/22/18 07:05 BUN 6 mg/dL (7-18) L 03/22/18 07:05 Creatinine 0.6 mg/dL (0.55-1.02) 03/22/18 07:05 Creat Clearance w eGFR > 60 (>60) 03/22/18 07:05 Random Glucose 85 mg/dL (74-106) 03/22/18 07:05 Calcium 8.7 mg/dL (8.5-10.1) 03/22/18 07:05 Total Bilirubin 1.1 mg/dL (0.2-1.0) H D 03/22/18 07:05 AST 13 U/L (15-37) L 03/22/18 07:05 ALT 15 U/L (12-78) 03/22/18 07:05 Alkaline Phosphatase 73 U/L (45-117) 03/22/18 07:05 Total Protein 6.3 g/dl (6.4-8.2) L 03/22/18 07:05 Albumin 3.3 g/dl (3.4-5.0) L 03/22/18 07:05 Current Medications Generic Name Dose Route Start Last Admin Trade Name Freq PRN Reason Stop Dose Admin Heparin Sodium (Porcine) 5,000 unit 03/21/18 22:00 03/22/18 13:27 Heparin - SQ 5,000 unit TID WANDY Administration Lactated Ringer's 1,000 mls @ 200 mls/hr 03/21/18 17:00 03/22/18 09:47 Lactated Ringers Solution IV 200 mls/hr ASDIR WANDY Administration Metoclopramide HCl 10 mg 03/21/18 20:00 Reglan Injection - IVPUSH Q6H PRN NAUSEA AND/OR VOMITING Morphine Sulfate 2 mg 03/21/18 17:29 Morphine Sulfate IVPUSH Q4H PRN PAIN LEVEL 6-10 Ondansetron HCl 4 mg 03/21/18 20:00 Zofran Injection IVPUSH Q6H PRN NAUSEA Home Medications Medication Instructions Recorded NK [No Known Home Medication] 02/05/18 A/P: 27F with PMH GERD, pre-hypertension, anxiety and depression, presents to the hospital with abdominal pain found to have acute pancreatitis. #Acute Pancreatitis: Likely due to alcohol abuse. NPO, IVF, GI consult. liquid diet # HTN: Trend BP #Anxiety/Depression: Patient was started on trazadone on last outpatient visit and states she has not has any anxiety and does not feel depressed anymore and does not want to take the trazadone anymore so she stopped it. #GERD: Stopped omeprazole because she states she felt like it gave her abdominal pain #Fatty Liver: low fat diet; US ABD-Fatty Liver DVt Px: heparin repeat lipase if tolerates diet , will discharge her in am. Visit type - Emergency Visit Emergency Visit: Yes ED Registration Date: 03/21/18 Care time: The patient presented to the Emergency Department on the above date and was hospitalized for further evaluation of their emergent condition. - New Patient This patient is new to me today: No - Critical Care Critical Care patient: No - Discharge Referral Referred to [facility] No
--- NOTE | 2018-03-22 14:44 | PN ---
Progress Note (short form) - Note Progress Note: GI CONSULTATION: SEE COMPLETE DICTATION IN BRIEF: 27F WITH TRANSIENT, MODERATE EPIGASTRIC/RUQ PAIN WITH MILD ELEVATION OF LIPASE WITHOUT ANY OTHER FINDINGS AND NORMAL LIPASE SONOGRAM OF RUQ WAS NORMAL/ FATTY LIVER NOW PAIN FREE AND NO EXAM OR LAB FINDINGS PT WOULD LIKE TO EAT AND GO HOME RECC; CLEARS PO/ THEN SOLID DINNER\\ IF TOLERATED CAN F/U OUTPATIENT IF HAS PAIN OR VOMITING, THEN WOULD OBTAIN CT SCAN SUPP CARE PT ADMITS TO A "RECENT" BUT NOT CURRENT ETOH HX NEEDS WEIGHT LOSS AND OUTPT F/U THANKS, MD ABDULKADIR
[2018-03-23] MEDS: LACTATED RINGERS SOLUTION 1,000 ML IV SCH (04:01)
--- NOTE | 2018-03-23 05:22 | CONS ---
DATE OF CONSULTATION: 03/22/2018 GASTROENTEROLOGY CONSULTATION REASON FOR CONSULTATION: I was asked by to evaluate the patient for possible pancreatitis. HISTORY OF PRESENT ILLNESS: The patient is a 27-year-old woman who is a poor informant. She can elicit some of her medical history. She cannot recall the medications that she had been taking. She tells me that she follows with Dr. Jimenez, and she has been treated for acid reflux disease and anxiety as her only medical problems. She was taking a couple of pills. She thinks some were for anxiety, but no certain. She tried a couple for acid reflux (she does not remember the names), without any relief, but recently she was not taking any medication. She had the onset of some nausea, vomiting and epigastric and right upper quadrant pain that was in the right side and the back, and it became more severe. She said it started at 10 a.m. yesterday and she started to have some vomiting. She came to the hospital and she got some pain medication. By 2 in the afternoon, she felt much better. The patient says that she has never had an episode of pain like this. Prior she has had some indigestion and reflux of acid, but this was much more severe. She has no prior history of any liver, biliary or pancreatic disease that she is aware of. She says her mother has colitis and gastritis, but does not believe that she has biliary disease, but she is not certain. The patient reports that she was not having any fever, chills or sweats. She was not having any hematemesis. She denies difficulty moving her bowels. She said she even had a bowel movement yesterday that was normal, during the pain episode. She says that she does smoke daily and she used to drink heavily. She says she has not been drinking lately. She used to have 5 to 6 glasses of vodka a day. She said sometimes she would wake up in the morning and be stressed and have a glass or two, but not in a while. Other than that, the patient really has no other medical history. SHE SAYS SHE IS ALLERGIC TO PENICILLIN. Again, she was not on any recent medication. When she came to the hospital, she was afebrile, and it looks like her vital signs were completely stable. She had a mild elevation of her lipase, and was admitted for observation and management. Her in the hospital, the patient's medications include Zofran, heparin subQ, some IV fluid, some Ringer lactate, as well as some morphine and some Reglan. PHYSICAL EXAMINATION: Vital Signs: Her vital signs currently are complete stable. Her pulse is in the 70s. She is afebrile. Her blood pressure is 130/60. General: She looks very healthy, in absolutely no distress. She is moving about easily. She is eager to eat and go home. HEENT: Sclerae are anicteric. Skin: Cool. Neck: Supple. Heart: Regular. Abdomen: A little obese, but it is quite soft. Bowel sounds are heard; they are active. There is minimal tenderness to deep palpation in the epigastric region. There is really no tenderness to palpation in the right upper quadrant. There is no rebound or guarding noted. DIAGNOSTIC STUDIES: Her lab data is notable in that her SMA-18 is essentially all within normal limits and it was all within normal limits on admission. She had a very mild amylase of 150 and a lipase of 1700, which is now at 1100. The imaging she had was a sonogram of the right upper quadrant, which failed to reveal any evidence of any gallstones, cholecystitis or intrahepatic or extrahepatic biliary ductal dilatation. She does have a little bit of hepatic steatosis, which goes along with her underlying obesity. IMPRESSION: The patient is a 27-year-old woman with some underlying reflux and anxiety, who comes in with a kind of more moderate pain episode in the epigastric/right upper quadrant region, what sounded like a biliary etiology. However, there is no obvious evidence of biliary disease. She had a mild elevation of her lipase, without any other findings. It is unclear that she has had a true episode of pancreatitis. RECOMMENDATIONS: Because she is feeling better, is currently completely pain free, wants to eat and go home, I would just treat her symptomatically. I do not think it would be warranted to give her the radiation of a CAT scan just to look for that. I think that if she can eat, she should go home and follow up again as an outpatient. Otherwise, if she is unable to tolerate a solid diet, then we could do more of an investigation. But for now she appears much improved and there is no evidence of any ongoing abdominal toxicity. We will continue to be available to aid and manage this patient. LESLEY PANCHAL M.D. [id number]
[2018-03-23] MEDS: HEPARIN NA (PORCINE) 5,000 UNITS/ML 1ML VIAL SQ SCH ×2 (09:16→14:32)
--- NOTE | 2018-03-23 13:41 | DS ---
Physical Exam: SUBJECTIVE: Patient seen and examined OBJECTIVE: Vital Signs Temperature 99.3 F 03/22/18 22:15 Pulse Rate 83 03/22/18 22:15 Respiratory Rate 20 03/22/18 22:15 Blood Pressure 100/50 03/22/18 22:15 O2 Sat by Pulse Oximetry (%) 97 03/21/18 21:00 PHYSICAL EXAM GENERAL: The patient is awake, alert, and fully oriented, in no acute distress. HEAD: Normal with no signs of trauma. EYES: PERRL, extraocular movements intact, sclera anicteric, conjunctiva clear. ENT: Ears normal, nares patent, oropharynx clear without exudates, moist mucous membranes. NECK: Trachea midline, full range of motion, supple. LUNGS: Breath sounds equal, clear to auscultation bilaterally, no wheezes, no crackles, no accessory muscle use. HEART: Regular rate and rhythm, S1, S2 without murmur, rub or gallop. ABDOMEN: Soft, nontender, nondistended, normoactive bowel sounds, no guarding, no rebound, no hepatosplenomegaly, no masses. EXTREMITIES: 2+ pulses, warm, well-perfused, no edema. NEUROLOGICAL: Cranial nerves II through XII grossly intact. Normal speech, gait not observed. PSYCH: Normal mood, normal affect. SKIN: Warm, dry, normal turgor, no rashes or lesions noted. LABS Laboratory Results - last 24 hr 03/23/18 06:56 Lipase 982 H CBCD WBC 9.3 K/mm3 (4.0-10.0) D 03/22/18 07:15 RBC 4.57 M/mm3 (3.60-5.2) 03/22/18 07:15 Hgb 14.5 GM/dL (10.7-15.3) 03/22/18 07:15 Hct 42.1 % (32.4-45.2) 03/22/18 07:15 MCV 92.3 fl (80-96) 03/22/18 07:15 MCHC 34.5 g/dl (32.0-36.0) 03/22/18 07:15 RDW 16.7 % (11.6-15.6) H 03/22/18 07:15 Plt Count 189 K/MM3 (134-434) 03/22/18 07:15 MPV 8.8 fl (7.5-11.1) 03/22/18 07:15 CMP Sodium 138 mmol/L (136-145) 03/22/18 07:05 Potassium 4.1 mmol/L (3.5-5.1) 03/22/18 07:05 Chloride 104 mmol/L (98-107) 03/22/18 07:05 Carbon Dioxide 25 mmol/L (21-32) 03/22/18 07:05 Anion Gap 9 (8-16) 03/22/18 07:05 BUN 6 mg/dL (7-18) L 03/22/18 07:05 Creatinine 0.6 mg/dL (0.55-1.02) 03/22/18 07:05 Creat Clearance w eGFR > 60 (>60) 03/22/18 07:05 Random Glucose 85 mg/dL (74-106) 03/22/18 07:05 Calcium 8.7 mg/dL (8.5-10.1) 03/22/18 07:05 Total Bilirubin 1.1 mg/dL (0.2-1.0) H D 03/22/18 07:05 AST 13 U/L (15-37) L 03/22/18 07:05 ALT 15 U/L (12-78) 03/22/18 07:05 Alkaline Phosphatase 73 U/L (45-117) 03/22/18 07:05 Total Protein 6.3 g/dl (6.4-8.2) L 03/22/18 07:05 Albumin 3.3 g/dl (3.4-5.0) L 03/22/18 07:05 Current Medications Generic Name Dose Route Start Last Admin Trade Name Freq PRN Reason Stop Dose Admin Heparin Sodium (Porcine) 5,000 unit 03/21/18 22:00 03/23/18 09:16 Heparin - SQ Not Given TID WANDY Lactated Ringer's 1,000 mls @ 200 mls/hr 03/21/18 17:00 03/23/18 04:01 Lactated Ringers Solution IV 200 mls/hr ASDIR WANDY Administration Metoclopramide HCl 10 mg 03/21/18 20:00 Reglan Injection - IVPUSH Q6H PRN NAUSEA AND/OR VOMITING Morphine Sulfate 2 mg 03/21/18 17:29 Morphine Sulfate IVPUSH Q4H PRN PAIN LEVEL 6-10 Ondansetron HCl 4 mg 03/21/18 20:00 Zofran Injection IVPUSH Q6H PRN NAUSEA Home Medications Medication Instructions Recorded NK [No Known Home Medication] 02/05/18 HOSPITAL COURSE: Date of Admission:03/21/18 Date of Discharge: 03/23/18 A/P: 27F with PMH GERD, pre-hypertension, anxiety and depression, presents to the hospital with abdominal pain found to have acute pancreatitis. #Acute Pancreatitis: Likely due to alcohol abuse. patient tolerated diet, can be discharged home, ablt ot tolerate diet without any issues. follow with in the clinic and with # HTN: controlled #Anxiety/Depression: Patient was started on trazadone on last outpatient visit and states she has not has any anxiety and does not feel depressed anymore and does not want to take the trazadone anymore so she stopped it. Follow with your primary operator for further care #GERD: Stopped omeprazole because she states she felt like it gave her abdominal pain #Fatty Liver: low fat diet; US ABD-Fatty Liver Laboratory Tests 03/21/18 03/22/18 03/23/18 14:25 07:05 06:56 Lipase 1707 H 1166 H 982 H Minutes to complete discharge: 35 Discharge Summary Reason For Visit: PANCREATITIS Current Active Problems Pancreatitis (Acute) - Instructions Referrals: Marco Jimenez MD [Primary Care Provider] - - Home Medications Comprehensive Discharge Medication List: Ambulatory Orders NK [No Known Home Medication] 02/05/18 This patient is new to me today: No Emergency Visit: Yes ED Registration Date: 03/21/18 Care time: The patient presented to the Emergency Department on the above date and was hospitalized for further evaluation of their emergent condition. Critical Care patient: No - Discharge Referral Referred to [facility] No
[2018-03-23 14:31] VITALS: BP 125/84; PULSE 100; TEMP 98.7
== END 2018-03-23 17:38 | disposition home or self-care (01) | DRG 439 ==
LOC: JER 13:29 → JERBED 16:31 → J8W 18:47
PROVIDERS: ADMIT Internal Medicine; ATTEND Internal Medicine
DX: K85.90 Acute pancreatitis without necrosis or infection, unspecified (principal); F10.180 Alcohol abuse with alcohol-induced anxiety disorder; F41.8 Other specified anxiety disorders; K21.9 Gastro-esophageal reflux disease without esophagitis; K76.0 Fatty (change of) liver, not elsewhere classified
CPT/HCPCS: 36415; 76705-TC; 80053; 80061; 80307; 81003; 81015; 82150; 83690; 83721; 83735; 84100; 84703; 85025; 85027; 87086; 99284-25; J1644; J7030

== ENCOUNTER 2022-07-17 16:15 | Emergency (ER) | payer OTHER ==
[2022-07-17 16:32] VITALS: BP 130/90; PULSE 94; RESP 18; TEMP 98.2; BMI 32.5
[2022-07-17 19:17] LABS: BASO % 0.4 % (0-2.0); EOS % 0.3 % (0-4.5); HEMATOCRIT 46.7 % (32.4-45.2); HEMOGLOBIN 15.7 GM/dL (10.7-15.3); LYMPH % 15.7 % (8-40); MCHC 33.7 g/dl (32.0-36.0); MEAN CELL VOLUME 109.8 fl (80-96); MEAN PLT VOLUME 8.1 fl (7.5-11.1); MONO % 5.2 % (3.8-10.2); NEUT % 78.4 % (42.8-82.8); PLATELET COUNT 254 10^3/uL (134-434); RBC 4.25 M/mm3 (3.60-5.2); RDW 15.5 % (11.6-15.6); WHITE BLOOD COUNT 10.1 K/mm3 (4.0-10.0)
[2022-07-17 19:42] LABS: CALCIUM 9.3 mg/dL (8.5-10.1)
[2022-07-17 19:43] LABS: ALBUMIN 3.8 g/dl (3.4-5.0); BLOOD UREA NITROGEN 10.2 mg/dL (7-18); MAGNESIUM 2.1 mg/dL (1.8-2.4)
[2022-07-17 19:46] LABS: CREATININE 0.6 mg/dL (0.55-1.3)
[2022-07-17 19:48] LABS: BILIRUBIN,TOTAL 1.2 mg/dL (0.2-1); TOT PROT 7.3 g/dl (6.4-8.2)
[2022-07-17 21:31] LABS: ANISOCYTOSIS 2+; MACROCYTOSIS 2+; OVALOCYTE 2+
[2022-07-17] MEDS ORDERED: LIDOCAINE 5% TOPICAL PATCH TP ONE (23:03)
[2022-07-17] MEDS ORDERED: ACETAMINOPHEN 500 MG TABLET (FP) PO ONE (23:03)
[2022-07-17] MEDS ORDERED: IBUPROFEN 600 MG TABLET (FP) PO ONE ×2 (23:03→23:14)
[2022-07-17] MEDS ORDERED: PARoxetine HCL 20 MG TABLET PO ONE (23:04)
[2022-07-17] MEDS ORDERED: LIDOCAINE 5% TOPICAL PATCH ONE (23:15)
[2022-07-17] MEDS ORDERED: PARoxetine HCL 10 MG TABLET ONE (23:15)
[2022-07-17] MEDS ORDERED: ACETAMINOPHEN 500 MG TABLET (FP) ONE (23:16)
[2022-07-18] MEDS ORDERED: LIDOCAINE PATCH REMOVAL MC SCH (11:00)
== END 2022-07-17 23:28 | disposition home or self-care (01) ==
LOC: JER 16:15
DX: M79.601 Pain in right arm (principal)
CPT/HCPCS: 36415; 70450-TC; 72125-TC; 80053; 83735; 85025; 93005; 93010; 99285-25

== ENCOUNTER 2024-01-22 12:01 | Emergency (ER) | payer OTHER ==
[2024-01-22 12:19] VITALS: BP 134/83; PULSE 87; RESP 16; TEMP 98.3; BMI 29.0
[2024-01-22] MEDS ORDERED: FAMOTIDINE 20 MG/50 ML IVPB 20 MG/50 ML MG IVPB ONE (14:15)
[2024-01-22 14:36] LABS: BASO % 0.3 % (0-2.0); EOS % 1.2 % (0-4.5); HEMATOCRIT 50.1 % (32.4-45.2); LYMPH % 15.1 % (8-40); MCH 34.5 pg (25.7-33.7); MEAN CELL VOLUME 101.4 fl (80-96); MEAN PLT VOLUME 8.7 fl (7.5-11.1); MONO % 6.1 % (3.8-10.2); NEUT % 77.3 % (42.8-82.8); PLATELET COUNT 182 10^3/uL (134-434); RBC 4.95 M/mm3 (3.60-5.2); RDW 18.2 % (11.6-15.6); WHITE BLOOD COUNT 6.4 K/mm3 (4.0-10.0)
[2024-01-22] MEDS: FAMOTIDINE 20 MG/50 ML IVPB 20 MG/50 ML MG IVPB ONE (15:06)
[2024-01-22 15:10] LABS: CHLORIDE 104 mmol/L (98-107); POTASSIUM 4.1 mmol/L (3.5-5.1); SODIUM 140 mmol/L (136-145)
[2024-01-22 15:12] LABS: ALBUMIN 3.8 g/dl (3.4-5.0); ANION GAP 11 mmol/L (4-13); CALCIUM 9.5 mg/dL (8.5-10.1); CO2 25 mmol/L (21-32); GLUCOSE,RANDOM 78 mg/dL (74-106)
[2024-01-22 15:13] LABS: EPI CELLS 15 /uL (0-25.1); HYALINE CASTS 0 /uL (0-3.1); URINE APPEARANCE CLEAR; URINE BACTERIA 184 /uL (0-1359); URINE BILIRUBIN NEGATIVE (NEGATIVE); URINE COLOR YELLOW; URINE GLUCOSE (UA) NEGATIVE (NEGATIVE); URINE KETONE 4+ (NEGATIVE); URINE LEUK ESTERASE NEGATIVE (NEGATIVE); URINE NITRITE NEGATIVE (NEGATIVE); URINE PROTEIN NEGATIVE (NEGATIVE); URINE RBC 17 /uL (0-23.9); URINE WBC 9 /uL (0-25.8)
[2024-01-22 15:14] LABS: CREATININE 0.5 mg/dL (0.55-1.3); SGOT/AST 17 U/L (15-37); SGPT/ALT 21 U/L (13-61)
[2024-01-22 15:16] LABS: BILIRUBIN,TOTAL 1.7 mg/dL (0.2-1); TOT PROT 7.5 g/dl (6.4-8.2)
[2024-01-22 15:18] LABS: ALK PHOS 82 U/L (45-117)
[2024-01-22] MEDS: SODIUM CHLORIDE 0.9% 500 ML INFUS.BAG IV ONE (15:53)
[2024-01-22] MEDS ORDERED: KETOROLAC TROMETHAMINE 30 MG/1 ML VIAL ONE (16:40)
[2024-01-22] MEDS: KETOROLAC TROMETHAMINE 30 MG/1 ML VIAL IVPUSH ONE (16:47)
[2024-01-22 18:34] LABS: HEMATOCRIT 47.7 % (32.4-45.2); HEMOGLOBIN 16.1 GM/dL (10.7-15.3); MCH 34.8 pg (25.7-33.7); MCHC 33.8 g/dl (32.0-36.0); MEAN CELL VOLUME 103.1 fl (80-96); MEAN PLT VOLUME 8.7 fl (7.5-11.1); PLATELET COUNT 206 10^3/uL (134-434); RBC 4.63 M/mm3 (3.60-5.2); RDW 18.3 % (11.6-15.6); WHITE BLOOD COUNT 6.1 K/mm3 (4.0-10.0)
[2024-01-22 18:42] LABS: EPI CELLS 1 /uL (0-25.1); HYALINE CASTS 0 /uL (0-3.1); URINE APPEARANCE CLEAR; URINE BACTERIA 2 /uL (0-1359); URINE BILIRUBIN NEGATIVE (NEGATIVE); URINE COLOR YELLOW; URINE GLUCOSE (UA) NEGATIVE (NEGATIVE); URINE KETONE 4+ (NEGATIVE); URINE LEUK ESTERASE NEGATIVE (NEGATIVE); URINE NITRITE NEGATIVE (NEGATIVE); URINE PROTEIN NEGATIVE (NEGATIVE); URINE RBC 17 /uL (0-23.9); URINE WBC 4 /uL (0-25.8)
== END 2024-01-22 20:02 | disposition home or self-care (01) ==
LOC: JER 12:01
PROC: 3E033GC Introduction of Other Therapeutic Substance into Peripheral Vein, Percutaneous Approach (ICD-10-PCS; principal; 2024-01-22)
PROC: 3E0333Z Introduction of Anti-inflammatory into Peripheral Vein, Percutaneous Approach (ICD-10-PCS; 2024-01-22)
DX: R10.11 Right upper quadrant pain (principal); K80.20 Calculus of gallbladder without cholecystitis without obstruction
CPT/HCPCS: 36415; 76705-TC; 80053; 80307; 81003; 83690; 85025; 85027; 87086; 99284-25

== ENCOUNTER 2024-03-22 09:40 | Inpatient (IN) | payer OTHER ==
[2024-03-22] MEDS ORDERED: ONDANSETRON 4 MG/2 ML VIAL ONE (10:43)
[2024-03-22] MEDS ORDERED: ACETAMINOPHEN INJECTION 100 ML IVPB ONE (10:43)
[2024-03-22] MEDS ORDERED: FAMOTIDINE 20 MG/50 ML IVPB 20 MG/50 ML MG IVPB ONE (10:43)
[2024-03-22] MEDS ORDERED: MAG HYDROX/AL HYDROX/SIMETH 30 ML UNIT-DOSE CUP ONE (10:43)
[2024-03-22] MEDS: LACTATED RINGERS SOLUTION 1000 ML INFUS.BAG IV ONE (11:02)
[2024-03-22] MEDS: FAMOTIDINE 20 MG/50 ML IVPB 20 MG/50 ML MG IVPB ONE (11:02)
[2024-03-22] MEDS: MAG HYDROX/AL HYDROX/SIMETH 30 ML UNIT-DOSE CUP PO ONE (11:02)
[2024-03-22] MEDS: ACETAMINOPHEN 1000 MG/100 ML BAG IVPB ONE (11:02)
[2024-03-22] MEDS: ONDANSETRON 4 MG/2 ML VIAL IVPUSH ONE (11:03)
[2024-03-22 12:00] LABS: BASO % 0.4 % (0-2.0); EOS % 0.1 % (0-4.5); HEMATOCRIT 46.1 % (32.4-45.2); HEMOGLOBIN 15.9 GM/dL (10.7-15.3); LYMPH % 13.2 % (8-40); MCH 35.5 pg (25.7-33.7); MCHC 34.5 g/dl (32.0-36.0); MEAN PLT VOLUME 7.8 fl (7.5-11.1); MONO % 6.6 % (3.8-10.2); NEUT % 79.7 % (42.8-82.8); PLATELET COUNT 171 10^3/uL (134-434); RBC 4.48 M/mm3 (3.60-5.2); RDW 16.8 % (11.6-15.6); WHITE BLOOD COUNT 10.5 K/mm3 (4.0-10.0)
[2024-03-22 12:07] LABS: INR 1.07 (0.83-1.09); PROTHROMBIN TIME (PATIENT) 12.1 SEC (9.7-13.0)
[2024-03-22 12:10] LABS: ACTIVATED PTT 28.2 SECONDS (25.2-36.5)
[2024-03-22 12:20] LABS: POTASSIUM 4.1 mmol/L (3.5-5.1)
[2024-03-22 12:23] LABS: ALBUMIN 3.4 g/dl (3.4-5.0); BLOOD UREA NITROGEN 7.4 mg/dL (7-18)
[2024-03-22 12:27] LABS: CREATININE 0.8 mg/dL (0.55-1.3)
[2024-03-22 12:28] LABS: BILIRUBIN,TOTAL 1.4 mg/dL (0.2-1); TOT PROT 6.8 g/dl (6.4-8.2)
[2024-03-22 12:34] LABS: LACTIC ACID 7.7 mmol/L (0.4-2.0)
[2024-03-22 13:53] LABS: VENOUS BASE EXCESS -0.8 mmol/L (-2-2); VENOUS O2 SATURATION 99.2 % (70-80); VENOUS PCO2 36.5 mmHg (38-52); VENOUS PH 7.42 (7.310-7.410)
[2024-03-22] MEDS: SODIUM CHLORIDE 0.9% 500 ML INFUS.BAG IV ONE (14:21)
[2024-03-22] MEDS: FOLIC ACID INJECTION - 1 MG, THIAMINE HCL 100 MG, MULTIVIT INJECTION ADULT 10 ML in SOD... IVPB ONE ×2 (14:35→16:06)
[2024-03-22] MEDS: THIAMINE HCL 200 MG/2 ML VIAL IVPB ONE (14:35)
[2024-03-22] MEDS: LACTATED RINGERS SOLUTION 1,000 ML/1,000 ML INFUS.BAG IV SCH (18:10)
[2024-03-22] MEDS ORDERED: HEPARIN NA (PORCINE) 5,000 UNITS/ML 1ML VIAL ONE (22:02)
[2024-03-22] MEDS ORDERED: THIAMINE 100 MG TABLET ONE (22:02)
[2024-03-22] MEDS: THIAMINE 100 MG TABLET PO SCH (22:08)
[2024-03-22] MEDS: HEPARIN NA (PORCINE) 5,000 UNITS/ML 1ML VIAL SQ SCH (22:09)
[2024-03-23 04:23] VITALS: BMI 28.8
[2024-03-23 07:58] LABS: BASO % 0.2 % (0-2.0); EOS % 0.3 % (0-4.5); HEMATOCRIT 40.9 % (32.4-45.2); HEMOGLOBIN 13.9 GM/dL (10.7-15.3); MCH 35.4 pg (25.7-33.7); MEAN CELL VOLUME 104.3 fl (80-96); MEAN PLT VOLUME 7.8 fl (7.5-11.1); MONO % 5.2 % (3.8-10.2); NEUT % 73.3 % (42.8-82.8); PLATELET COUNT 144 10^3/uL (134-434); RBC 3.92 M/mm3 (3.60-5.2); RDW 17.4 % (11.6-15.6); WHITE BLOOD COUNT 5.3 K/mm3 (4.0-10.0)
[2024-03-23 08:11] LABS: POTASSIUM 3.4 mmol/L (3.5-5.1)
[2024-03-23 08:20] LABS: CALCIUM 8.6 mg/dL (8.5-10.1)
[2024-03-23 08:21] LABS: BLOOD UREA NITROGEN 5.3 mg/dL (7-18)
[2024-03-23 08:24] LABS: CREATININE 0.5 mg/dL (0.55-1.3)
[2024-03-23] MEDS: FAMOTIDINE 20 MG TABLET PO SCH (09:55)
[2024-03-23] MEDS: POTASSIUM CHLORIDE ORAL LIQUID 20 MEQ/15 ML PO ONE (11:10)
[2024-03-23] MEDS: ACETAMINOPHEN 325 MG TABLET (FP) PO PRN (14:08)
[2024-03-23] MEDS: levETIRAcetam 500 MG TABLET (FP) PO SCH (21:19)
[2024-03-24 08:01] LABS: BASO % 0.3 % (0-2.0); EOS % 0.5 % (0-4.5); HEMATOCRIT 41.4 % (32.4-45.2); LYMPH % 26.8 % (8-40); MCH 35.2 pg (25.7-33.7); MCHC 33.9 g/dl (32.0-36.0); MEAN CELL VOLUME 103.7 fl (80-96); MEAN PLT VOLUME 7.9 fl (7.5-11.1); MONO % 7.4 % (3.8-10.2); PLATELET COUNT 161 10^3/uL (134-434); RBC 3.99 M/mm3 (3.60-5.2); RDW 17.1 % (11.6-15.6); WHITE BLOOD COUNT 4.8 K/mm3 (4.0-10.0)
[2024-03-24 08:16] LABS: POTASSIUM 3.9 mmol/L (3.5-5.1)
[2024-03-24 08:23] LABS: CREATININE 0.4 mg/dL (0.55-1.3)
[2024-03-24 08:25] LABS: TOT PROT 5.9 g/dl (6.4-8.2)
[2024-03-24 08:26] LABS: CALCIUM 8.2 mg/dL (8.5-10.1)
[2024-03-24 10:08] VITALS: TEMP 99
[2024-03-24 11:17] VITALS: BP 115/84; PULSE 73; RESP 15
== END 2024-03-24 11:25 | disposition short-term general hospital (02) | DRG 64 ==
LOC: JER 09:40 → JERBED 21:22 → J4W 03-23 04:31
PROVIDERS: ADMIT Internal Medicine; ATTEND Internal Medicine
DX: I61.8 Other nontraumatic intracerebral hemorrhage (principal); G08 Intracranial and intraspinal phlebitis and thrombophlebitis; F10.239 Alcohol dependence with withdrawal, unspecified; K21.9 Gastro-esophageal reflux disease without esophagitis; R56.9 Unspecified convulsions; E87.6 Hypokalemia; R79.89 Other specified abnormal findings of blood chemistry; F41.0 Panic disorder [episodic paroxysmal anxiety]; F41.8 Other specified anxiety disorders; I10 Essential (primary) hypertension; E78.5 Hyperlipidemia, unspecified
CPT/HCPCS: 36415; 70450-TC; 70496-TC; 70498-TC; 70551-TC; 72125-TC; 80048; 80053; 80307; 82010; 82803; 82962; 83605; 83690; 83735; 84703; 85025; 85610; 85730; 93005; 93010; 99285-25; J0131; J1644

== ENCOUNTER 2025-01-18 20:52 | Emergency (ER) | payer OTHER ==
[2025-01-18 20:59] VITALS: RESP 20; TEMP 98.7; BMI 26.8
[2025-01-18] MEDS: SODIUM CHLORIDE 0.9% 500 ML INFUS.BAG IV ONE (21:44)
[2025-01-18 22:06] LABS: BASO % 0.6 % (0-2.0); HEMOGLOBIN 14.7 GM/dL (10.7-15.3); LYMPH % 41.3 % (8-40); MCH 32.8 pg (25.7-33.7); MCHC 33.3 g/dl (32.0-36.0); MEAN CELL VOLUME 98.2 fl (80-96); MEAN PLT VOLUME 8.4 fl (7.5-11.1); MONO % 6.9 % (3.8-10.2); NEUT % 49.2 % (42.8-82.8); PLATELET COUNT 176 10^3/uL (134-434); RBC 4.48 M/mm3 (3.60-5.2); RDW 13.6 % (11.6-15.6); WHITE BLOOD COUNT 4.9 K/mm3 (4.0-10.0)
[2025-01-18 22:13] LABS: INR 0.95 (0.83-1.09); PROTHROMBIN TIME (PATIENT) 10.5 SEC (9.7-13.0); URINE APPEARANCE CLEAR; URINE BILIRUBIN 1+ (NEGATIVE); URINE COLOR DK YELLOW; URINE GLUCOSE (UA) NEGATIVE (NEGATIVE); URINE KETONE TRACE (NEGATIVE); URINE LEUK ESTERASE NEGATIVE (NEGATIVE); URINE NITRITE NEGATIVE (NEGATIVE); URINE PROTEIN TRACE (NEGATIVE)
[2025-01-18 22:15] LABS: HCG,QUALITATIVE URINE Negative
[2025-01-18 22:16] LABS: ACTIVATED PTT 30.2 SECONDS (25.2-36.5)
[2025-01-18 22:32] LABS: POTASSIUM 3.6 mmol/L (3.5-5.1)
[2025-01-18 22:33] LABS: BLOOD UREA NITROGEN 10.2 mg/dL (7-18)
[2025-01-18 22:34] LABS: ALBUMIN 3.4 g/dl (3.4-5.0); CALCIUM 8.7 mg/dL (8.5-10.1); MAGNESIUM 2.2 mg/dL (1.8-2.4)
[2025-01-18 22:38] LABS: CREATININE 0.6 mg/dL (0.55-1.3)
[2025-01-18 22:39] LABS: BILIRUBIN,TOTAL 0.6 mg/dL (0.2-1)
[2025-01-18 23:30] VITALS: BP 113/77; PULSE 84
== END 2025-01-19 00:21 | disposition home or self-care (01) ==
LOC: JER 20:52
DX: F10.220 Alcohol dependence with intoxication, uncomplicated (principal); R51.9 Headache, unspecified; R42 Dizziness and giddiness; R07.9 Chest pain, unspecified; R11.10 Vomiting, unspecified; R55 Syncope and collapse; Y90.8 Blood alcohol level of 240 mg/100 ml or more
CPT/HCPCS: 36415; 70450-TC; 80053; 80307; 81003; 83735; 84484; 84703; 85025; 85610; 85730; 87086; 93005; 93010; 99285-25

== ENCOUNTER 2025-01-24 18:42 | Inpatient (IN) | payer OTHER ==
[2025-01-24 19:03] VITALS: BMI 29.8
[2025-01-24] MEDS ORDERED: IBUPROFEN 400 MG TABLET (FP) PO PRN (19:47)
[2025-01-24] MEDS ORDERED: DICYCLOMINE HCL 10 MG CAPSULE PO PRN (19:47)
[2025-01-24] MEDS ORDERED: METHOCARBAMOL 500 MG TABLET PO PRN (19:47)
[2025-01-24] MEDS ORDERED: diazePAM 5 MG TABLET PO PRN (19:47)
[2025-01-24] MEDS ORDERED: NALOXONE (NARCAN) HCL 4 MG/0.1 ML SPRAY NS PRN (19:47)
[2025-01-24] MEDS ORDERED: LOPERAMIDE HCL 2 MG CAPSULE PO PRN (19:47)
[2025-01-24] MEDS ORDERED: POLYETHYLENE GLYCOL (HEALTHYLAX) 3350 17 GM PACKET PO PRN (19:47)
[2025-01-24] MEDS ORDERED: BISMUTH SUBSALICYLATE 524 MG/30 ML PO PRN (19:47)
[2025-01-24] MEDS ORDERED: ACETAMINOPHEN 325 MG TABLET (FP) PO PRN (19:47)
[2025-01-24] MEDS ORDERED: BENZOCAINE/MENTHOL (CHLORASEPTIC ) LOZENGE MM PRN (19:47)
[2025-01-24] MEDS ORDERED: MAGNESIUM HYDROX 2400MG/30ML ORAL SUSPENSION 30 ML CUP PO PRN (19:47)
[2025-01-24] MEDS ORDERED: MAG HYDROX/AL HYDROX/SIMETH 30 ML UNIT-DOSE CUP PO PRN (19:47)
[2025-01-24] MEDS ORDERED: BENZONATATE 200 MG CAPSULE PO PRN (19:47)
[2025-01-24] MEDS ORDERED: IBUPROFEN 600 MG TABLET (FP) PO PRN (19:47)
[2025-01-24] MEDS ORDERED: hydrOXYzine PAMOATE 25 MG CAPSULE (FP) PO PRN (19:47)
[2025-01-24] MEDS ORDERED: ONDANSETRON *ODT* 4 MG TABLET SL PRN (19:47)
[2025-01-24] MEDS ORDERED: guaiFENesin 600 MG TABLET.ER (FP) PO PRN (19:47)
[2025-01-24] MEDS ORDERED: levETIRAcetam 250 MG TABLET PO SCH (22:00)
[2025-01-24] MEDS: THIAMINE 100 MG TABLET PO SCH (22:22)
[2025-01-24] MEDS: MELATONIN 5 MG TABLETS PO SCH (22:22)
[2025-01-24] MEDS: diazePAM 5 MG TABLET PO SCH (22:23)
[2025-01-25] MEDS: PRENATAL VITAMINS W/ FOLIC ACID TABLET (FP) PO SCH (10:27)
[2025-01-25] MEDS: NICOTINE 14 MG/24 HOURS TOPICAL PATCH TD SCH (10:27)
[2025-01-25] MEDS: levETIRAcetam 250 MG TABLET PO SCH (10:30)
[2025-01-25 11:22] LABS: HEMATOCRIT 40.2 % (32.4-45.2); MCH 32.7 pg (25.7-33.7); MCHC 32.4 g/dl (32.0-36.0); MEAN CELL VOLUME 100.8 fl (80-96); MEAN PLT VOLUME 9.8 fl (7.5-11.1); PLATELET COUNT 111 10^3/uL (134-434); RBC 3.99 M/mm3 (3.60-5.2); WHITE BLOOD COUNT 3.7 K/mm3 (4.0-10.0)
[2025-01-25 11:26] LABS: CHLORIDE 110 mmol/L (98-107); POTASSIUM 3.6 mmol/L (3.5-5.1); SODIUM 143 mmol/L (136-145)
[2025-01-25 11:34] LABS: BLOOD UREA NITROGEN 5.1 mg/dL (7-18)
[2025-01-25 11:35] LABS: SGOT/AST 54 U/L (15-37); SGPT/ALT 43 U/L (13-61)
[2025-01-25 11:36] LABS: GLUCOSE,RANDOM 97 mg/dL (74-106)
[2025-01-25 11:37] LABS: BILIRUBIN,TOTAL 0.9 mg/dL (0.2-1); TOT PROT 6.1 g/dl (6.4-8.2)
[2025-01-25 11:38] LABS: ALK PHOS 88 U/L (45-117); ANION GAP 6 mmol/L (4-13); CALCIUM 9.3 mg/dL (8.5-10.1); CO2 27 mmol/L (21-32)
[2025-01-25 11:39] LABS: CREATININE 0.6 mg/dL (0.55-1.3)
[2025-01-26] MEDS: diazePAM 5 MG TABLET PO SCH (05:43)
[2025-01-26 16:37] VITALS: RESP 16
[2025-01-27] MEDS: diazePAM 5 MG TABLET PO SCH (05:42)
[2025-01-27 08:37] VITALS: BP 126/84; PULSE 100; TEMP 98.2
[2025-01-28] MEDS ORDERED: diazePAM 5 MG TABLET PO ONE (06:00)
== END 2025-01-27 09:55 | disposition home or self-care (01) | DRG 897 ==
LOC: YASAS 18:42 → Y3N 19:59
PROVIDERS: ADMIT Allergy & Immunology; ATTEND Allergy & Immunology
PROC: HZ2ZZZZ Detoxification Services for Substance Abuse Treatment (ICD-10-PCS; principal; 2025-01-24)
DX: F10.230 Alcohol dependence with withdrawal, uncomplicated (principal); F17.210 Nicotine dependence, cigarettes, uncomplicated; F41.9 Anxiety disorder, unspecified; G40.909 Epilepsy, unspecified, not intractable, without status epilepticus; G47.00 Insomnia, unspecified; I10 Essential (primary) hypertension; K21.9 Gastro-esophageal reflux disease without esophagitis; Z88.0 Allergy status to penicillin; Z91.041 Radiographic dye allergy status
CPT/HCPCS: 36415; 80053; 80177; 80305; 80307; 81025; 85027; 86780; 93005; 93010

== ENCOUNTER 2025-02-01 09:36 | Emergency (ER) | payer OTHER ==
[2025-02-01 09:53] VITALS: BP 123/88; PULSE 91; RESP 18; TEMP 98.9; BMI 30.2
[2025-02-01] MEDS ORDERED: DEXAMETHASONE 4 MG TABLET (FP) ONE (10:29)
[2025-02-01] MEDS ORDERED: diphenhydrAMINE HCL 25 MG CAPSULE (FP) PO ONE (10:29)
[2025-02-01] MEDS ORDERED: FAMOTIDINE 10 MG TABLET ONE (10:29)
[2025-02-01] MEDS ORDERED: ACETAMINOPHEN 325 MG TABLET (FP) ONE (10:29)
[2025-02-01 10:31] LABS: ABSOLUTE IMMATURE GRANULOCYTES 0.02 x10^3/uL (0.0-0.031); BASOPHILS # 0.03 x10^3/uL (0.01-0.08); EOSINOPHIL % 0.8 % (0.7-5.8); EOSINOPHILS # 0.05 x10^3/uL (0.04-0.36); HEMATOCRIT 41.7 % (34.1-44.9); HEMOGLOBIN 13.7 g/dL (11.2-15.7); MCHC 32.9 g/dl (32.2-35.5); MEAN PLT VOLUME 11.5 fl (9.4-12.3); MONOCYTE % 10.5 % (4.7-12.5); PLATELET COUNT # 137 x10^3/uL (182-369); RDW 12.5 % (12.1-16.8)
[2025-02-01] MEDS: FAMOTIDINE 10 MG TABLET PO ONE (10:35)
[2025-02-01] MEDS: ACETAMINOPHEN 500 MG TABLET (FP) PO ONE ×2 (10:36)
[2025-02-01] MEDS: diphenhydrAMINE HCL 25 MG CAPSULE (FP) PO ONE (10:36)
[2025-02-01] MEDS: DEXAMETHASONE 4 MG TABLET (FP) PO ONE (10:36)
[2025-02-01 10:58] LABS: POTASSIUM 3.8 mmol/L (3.5-5.1)
[2025-02-01 11:00] LABS: ALBUMIN 3.5 g/dl (3.4-5.0); BLOOD UREA NITROGEN 8.4 mg/dL (7-18); CALCIUM 9.3 mg/dL (8.5-10.1)
[2025-02-01 11:04] LABS: CREATININE 0.7 mg/dL (0.55-1.3)
[2025-02-01 11:05] LABS: BILIRUBIN,TOTAL 0.9 mg/dL (0.2-1); TOT PROT 6.8 g/dl (6.4-8.2)
[2025-02-01] MEDS ORDERED: CLINDAMYCIN HCL 150 MG CAPSULE (FP) ONE (11:21)
[2025-02-01] MEDS: CLINDAMYCIN HCL 150 MG CAPSULE (FP) PO ONE (11:26)
[2025-02-01] MEDS: CLINDAMYCIN HCL 300 MG CAPSULE PO ONE (11:27)
[2025-02-01 12:08] LABS: HCV DIAGNOSTIC IN-HOUSE W/RFLX NON-REACTIVE (NONREACTIVE)
[2025-02-01 12:11] LABS: HIV INTERPRETATION NEGATIVE (NEGATIVE)
== END 2025-02-01 11:15 | disposition home or self-care (01) ==
LOC: JER 09:36
DX: R22.0 Localized swelling, mass and lump, head (principal); K04.7 Periapical abscess without sinus
CPT/HCPCS: 36415; 80053; 85025; 86803; 87389; 99283-25

== ENCOUNTER 2025-06-26 16:47 | Inpatient (IN) | payer OTHER ==
[2025-06-26 17:08] VITALS: BMI 31.1
[2025-06-26] MEDS ORDERED: MAGNESIUM HYDROX 2400MG/30ML ORAL SUSPENSION 30 ML CUP PO PRN (17:16)
[2025-06-26] MEDS ORDERED: NICOTINE POLACRILEX 2 MG GUM BUC PRN (17:16)
[2025-06-26] MEDS ORDERED: ONDANSETRON *ODT* 4 MG TABLET SL PRN (17:16)
[2025-06-26] MEDS ORDERED: NICOTINE POLACRILEX 2 MG LOZENGE BC PRN (17:16)
[2025-06-26] MEDS ORDERED: ACETAMINOPHEN 325 MG TABLET (FP) PO PRN (17:16)
[2025-06-26] MEDS ORDERED: BISMUTH SUBSALICYLATE 524 MG/30 ML PO PRN (17:16)
[2025-06-26] MEDS ORDERED: IBUPROFEN 600 MG TABLET (FP) PO PRN (17:16)
[2025-06-26] MEDS ORDERED: hydrOXYzine PAMOATE 25 MG CAPSULE (FP) PO PRN (17:16)
[2025-06-26] MEDS ORDERED: MAG HYDROX/AL HYDROX/SIMETH 30 ML UNIT-DOSE CUP PO PRN (17:16)
[2025-06-26] MEDS ORDERED: DICYCLOMINE HCL 10 MG CAPSULE PO PRN (17:16)
[2025-06-26] MEDS ORDERED: guaiFENesin 600 MG TABLET.ER (FP) PO PRN (17:16)
[2025-06-26] MEDS ORDERED: BENZONATATE 200 MG CAPSULE PO PRN (17:16)
[2025-06-26] MEDS ORDERED: POLYETHYLENE GLYCOL (HEALTHYLAX) 3350 17 GM PACKET PO PRN (17:16)
[2025-06-26] MEDS ORDERED: IBUPROFEN 400 MG TABLET (FP) PO PRN (17:16)
[2025-06-26] MEDS ORDERED: NALOXONE (NARCAN) HCL 4 MG/0.1 ML SPRAY NS PRN (17:16)
[2025-06-26] MEDS ORDERED: BENZOCAINE/MENTHOL (CHLORASEPTIC ) LOZENGE MM PRN (17:16)
[2025-06-26] MEDS ORDERED: METHOCARBAMOL 500 MG TABLET PO PRN (17:16)
[2025-06-26] MEDS ORDERED: LOPERAMIDE HCL 2 MG CAPSULE PO PRN (17:16)
[2025-06-26] MEDS: MELATONIN 5 MG TABLETS PO SCH (22:33)
[2025-06-26] MEDS: THIAMINE 100 MG TABLET PO SCH (22:33)
[2025-06-26] MEDS: levETIRAcetam 500 MG TABLET (FP) PO SCH (22:33)
[2025-06-27 08:13] LABS: MCHC 33.5 g/dl (32.2-35.5); MEAN CELL VOLUME 99.7 fl (79.4-94.8); MEAN PLT VOLUME 11.4 fl (9.4-12.3); RDW 13.0 % (12.1-16.8)
[2025-06-27 08:19] LABS: GLUCOSE,RANDOM 93 mg/dL (74-106)
[2025-06-27 08:20] LABS: TOT PROT 5.9 g/dl (6.4-8.2)
[2025-06-27 08:21] LABS: CO2 26 mmol/L (21-32)
[2025-06-27 08:22] LABS: ALK PHOS 76 U/L (40-150)
[2025-06-27 08:25] LABS: CREATININE 0.57 mg/dL (0.55-1.3); SGOT/AST 76 U/L (5-34)
[2025-06-27 09:25] LABS: SGPT/ALT 29 U/L (0-55)
[2025-06-27] MEDS: FOLIC ACID 1 MG TABLET (FP) PO SCH (09:57)
[2025-06-27] MEDS: PRENATAL VITAMINS W/ FOLIC ACID TABLET (FP) PO SCH (09:57)
[2025-06-27 10:09] VITALS: BP 137/85; PULSE 88; RESP 16; TEMP 98.6
[2025-06-27] MEDS: POTASSIUM CHLORIDE ORAL LIQUID 20 MEQ/15 ML PO ONE (10:39)
== END 2025-06-27 12:01 | disposition home or self-care (01) | DRG 897 ==
LOC: YASAS 16:47 → Y6N 18:53
PROVIDERS: ADMIT Neuromusculoskeletal Medicine & OMM; ATTEND Allergy & Immunology
PROC: HZ2ZZZZ Detoxification Services for Substance Abuse Treatment (ICD-10-PCS; principal; 2025-06-26)
DX: F10.20 Alcohol dependence, uncomplicated (principal); F17.210 Nicotine dependence, cigarettes, uncomplicated; F10.280 Alcohol dependence with alcohol-induced anxiety disorder; F10.282 Alcohol dependence with alcohol-induced sleep disorder; F32.9 Major depressive disorder, single episode, unspecified; E87.6 Hypokalemia; E78.5 Hyperlipidemia, unspecified; I10 Essential (primary) hypertension; K21.9 Gastro-esophageal reflux disease without esophagitis; G40.909 Epilepsy, unspecified, not intractable, without status epilepticus; Z62.810 Personal history of physical and sexual abuse in childhood; Z91.410 Personal history of adult physical and sexual abuse; Z87.19 Personal history of other diseases of the digestive system; Z88.0 Allergy status to penicillin; Z91.041 Radiographic dye allergy status
CPT/HCPCS: 36415; 80053; 80307; 85027; 86780

== ENCOUNTER 2025-07-01 20:48 | Emergency (ER) | payer OTHER ==
[2025-07-01 20:57] VITALS: BP 119/85; PULSE 92; RESP 18; TEMP 97.8; BMI 30.6
[2025-07-01] MEDS ORDERED: FOLIC ACID INJECTION - 1 MG, THIAMINE HCL 100 MG, MULTIVIT INJECTION ADULT 10 ML in SOD... IVPB ONE (21:14)
[2025-07-01 21:48] LABS: ABSOLUTE IMMATURE GRANULOCYTES 0.01 x10^3/uL (0.0-0.031); BASOPHILS # 0.03 x10^3/uL (0.01-0.08); EOSINOPHIL % 1.9 % (0.7-5.8); EOSINOPHILS # 0.08 x10^3/uL (0.04-0.36); MCHC 33.9 g/dl (32.2-35.5); MEAN CELL VOLUME 99.5 fl (79.4-94.8); MEAN PLT VOLUME 11.0 fl (9.4-12.3); MONOCYTE # 0.31 x10^3/uL (0.24-0.86); MONOCYTE % 7.4 % (4.7-12.5); RDW 12.5 % (12.1-16.8)
[2025-07-01 21:53] LABS: INR 0.97 (0.83-1.09); PROTHROMBIN TIME (PATIENT) 10.6 SEC (9.7-13.0)
[2025-07-01 21:56] LABS: ACTIVATED PTT 28.5 SECONDS (25.2-36.5)
[2025-07-01 22:01] LABS: GLUCOSE,RANDOM 87.0 mg/dL (74-106); TOT PROT 7.1 g/dl (6.4-8.2)
[2025-07-01 22:02] LABS: CO2 26.0 mmol/L (21-32)
[2025-07-01 22:07] LABS: CREATININE 0.65 mg/dL (0.55-1.3); SGOT/AST 98.0 U/L (5-34); SGPT/ALT 44.0 U/L (0-55)
[2025-07-01 22:29] LABS: HCV DIAGNOSTIC IN-HOUSE W/RFLX NON-REACTIVE (NONREACTIVE); HIV INTERPRETATION NEGATIVE (NEGATIVE)
[2025-07-01] MEDS ORDERED: ONDANSETRON 4 MG/2 ML VIAL ONE (22:41)
[2025-07-01 22:47] LABS: ALK PHOS 93.0 U/L (40-150)
[2025-07-01] MEDS: ONDANSETRON 4 MG/2 ML VIAL IVPUSH ONE (22:47)
== END 2025-07-01 23:26 | disposition home or self-care (01) ==
LOC: JER 20:48
PROC: 3E033GC Introduction of Other Therapeutic Substance into Peripheral Vein, Percutaneous Approach (ICD-10-PCS; principal; 2025-07-01)
DX: K80.20 Calculus of gallbladder without cholecystitis without obstruction (principal); R10.13 Epigastric pain; R11.2 Nausea with vomiting, unspecified; R14.0 Abdominal distension (gaseous); F10.20 Alcohol dependence, uncomplicated; Y90.9 Presence of alcohol in blood, level not specified
CPT/HCPCS: 36415; 74176-TC; 76705-TC; 80053; 83690; 84703; 85025; 85610; 85730; 86803; 86850; 86900; 86901; 87389; 99285-25